=== PATIENT | female | born 1975 | race Caucasian/White ===

== ENCOUNTER → 2025-01-27 | Outpatient (CLI) | payer OTHER, SELFPAY ==
--- OUTSIDE RECORDS SUMMARY | 2025-01-27 07:55 | XMS RPT_ITS | CCD ---
Author Organization [facility] CliniSyms Care Team Providers Care Laundry Bag Punch Operator Name Role Phone Ap Smalls Unavailable Antonio Iraheta Unavailable Unavailable Reggie Ayala Unavailable Furness, Ap T Unavailable [phone] Unavailable Unavailable Saniya Choi Unavailable Unavailable Furness, Dr. Ap Stephens Primary Care Un available Steph, Ms. Saniya Paulino Attending Unavailable Serina, Dr. Ap Stephens Primary Care Un available Lisle, Dr. Reggie Quach Attending Unavailabl e Bashir, Dr. Reggie Quach Referring Unavailabl e FURNESS, AP T Primary Care Unavailable YENI REINOSO Attending Unavailable SERINA, AP T Primary Care Unavailable YENI REINOSO Referring Unavailable NO, PHYSICIAN Primary Care Unavailable YENI TEJADA Attending Unavailable Ap Smalls MD Primary Care Provider [phone] Ap Smalls MD Primary Care Provider Ap Smalls MD Primary Care Provider [phone] ALIYAH MCCARTNEY Referring Unavailable FURNESS, AP T Primary Care Unavailable ODIN FATIMA Attending Unavailable ALIYAH MCCARTNEY Referring Unavailable FURNESS, AP T Primary Care Unavailable ALIYAH MCCARTNEY Referring Unavailable FURNESS, AP T Primary Care Unavailable ALTAGRACIA LEON Attending Unavailable ALIYAH MCCARTNEY Referring Unavailable FURNESS, AP T Primary Care Unavailable ALTAGRACIA LEON Attending Unavailable ALIYAH MCCARTNEY Referring Unavailable FURNESS, AP T Primary Care Unavailable ODIN FATIMA Attending Unavailable ALIYAH MCCARTNEY Referring Unavailable FURNESS, AP T Primary Care Unavailable ALIYAH MCCARTNEY Referring Unavailable FURNESS, AP T Primary Care Unavailable Ap Smalls MD Primary Care Provider ALIYAH MCCARTNEY Attending Unavailable AP SMALLS Primary Care Unavailable ALIYAH MCCARTNEY Attending Unavailable AP SMALLS Primary Care Unavailable ALIYAH MCCARTNEY Attending Unavailable AP SMALLS Primary Care Unavailable ALIYAH MCCARTNEY Attending Unavailable AP SMALLS Primary Care Unavailable RADHA RAMOS Attending Unavailable AP SMALLS Primary Care Unavailable Bib FLOOR COVERING INSTALLERRoxanaCAliyah Attending Provider [phone] Bib FLOOR COVERING INSTALLERRoxanaCAliyah Attending Provider Aliyah Mccartney Attending Unavailable Aliyah Mccartney Attending Unavailable Aliyah Mccartney Attending Unavailable Allergies Allergy Classification Reported Allergen(s) Allergy Type Date of Onset Reaction(s) Facility (17 sources) Amoxicillin; Translations: [amoxicillin] Drug Allergy 01-30-20 05 Hives, Itching, Rash [facility] (6 sources) Cephalexin; Translations: [cephalexin] Drug Allergy 02-08-20 15 Hives/Urticari a, Hives [facility] (5 sources) Penicillin; Translations: [Penicillins] Drug Allergy Swelling/Edema , Hives, Swelling [facility] (13 sources) Penicillins; Translations: [PENICILLINS] Propensity to adverse reactions to drug (disorder) 01-30-20 05 Hives, Rash, Swelling [facility] (12 sources) Cephalosporins (Antibiotic); Translations: [CEPHALOSPORINS] Propensity to adverse reactions to drug (disorder) 12-10-19 15 Hives [facility] (1 source) Amoxicillin Drug Allergy 10-24-19 25 [facility] Medications Current Medications Medication Drug Class(es) Dates Sig (Normalized) Sig (Original) acetaminophen 325 mg oral tablet (2 sources) Start: 04-20-2024 take 1 tablet by mouth once as needed Acetaminophen (Tylenol) 325 mg tablet Active 325 mg PO ONCE as needed April 20, 2024 12:00am azithromycin 250 mg oral tablet (2 sources) Macrolide Antimicrobial Start: 10-22-2020 take 2 tablets by mouth once, then take 1 tablet by mouth once daily azithromycin 250 mg oral tablet ; Take 2 tabs (500mg) x 1 days, then 1 tab (250mg) once daily x 4 days Quantity: 6 Refills: 0 Ordered: 22-Oct-2020 Antonio Iraheta Start: 22-Oct-2020 Status: Other Generic Substitution Allowed Comments: Do not take dairy products, antacids, or iron preparations within one hour of this medication.Finish all this medication unless otherwise directed by prescriber. Comment on above: Do not take dairy pr oducts, antacids, or iron preparations within one hour of this medication.Finish all this medication unless otherwise directed by prescriber. doxycycline hyclate 100 mg oral tablet (3 sources) Tetracycline-class Drug Start: 04-15-2021 End: 04-21-2021 take 1 tablet by mouth twice daily doxycycline hyclate 100 mg oral tablet ; 1 tab(s) orally 2 times a day Quantity: 14 Refills: 0 Ordered: 15-Apr-2021 Antonio Iraheta Start: 15-Apr-2021 End: 21-Apr-2021 Generic Substitution Allowed Comments: Avoid prolonged or excessive exposure to direct and/or artificial sunlight while taking this medication.Do not take this drug if you are .Finish all this medication unless otherwise directed by prescriber.Medicat ion should be taken with plenty of water. Start: 04-15-2021 Doxycycline Hy clate 100 MG Oral Tablet Quantity: 14 Refills: 0 Ordered: 15-Apr-2021 DO Start : 15-Apr-2021 Active Comment on above: Avoid prolonged or e xcessive exposure to direct and/or artificial sunlight while taking this medication.Do not take this drug if you are .Finish all this medication unless otherwise directed by prescriber.Medication should be taken with plenty of water. fluconazole 150 mg oral tablet (1 source) Azole Antifungal Start: 2024 End: 2024 take 1 tablet by mouth once fluconazole (Diflucan) 150 mg tablet Indications: Vaginal yeast infection Take 1 tablet (150 mg) by mouth 1 time for 1 dose. 1 tablet 05/31/2024 05/31/2024 Active hydrOXYzine hydrochloride 25 mg oral tablet (4 sources) Antihistamine Start: 2020 take 1 tablet by mouth three times daily hydrOXYzine hydrochloride 25 mg oral tablet ; 1 tab(s) orally 3 times a day as needed for itching Quantity: 20 Refills: 0 Ordered: 04-Jun-2020 Antonio Iraheta Start: 04-Jun-2020 Status: Other Generic Substitution Allowed Comments: May cause drowsiness. Alcohol may intensify this effect. Use care when operating dangerous machinery.Obtain medical advice before taking any non-prescription drugs as some may affect the action of this medication. Start: 03-15-2020 take 1 tablet by josee th four times daily hydrOXYzine hydrochloride 25 mg oral tablet ; 1 tab(s) orally 4 times a day, As Needed for itching Quantity: 30 Refills: 0 Ordered: 15-Mar-2020 Petre Abraham Start: 15-Mar-2020 Status: Other Generic Substitution Allowed Comments: May cause drowsiness. Alcohol may intensify this effect. Use care when operating dangerous machinery.Obtain medical advice before taking any non-prescription drugs as some may affect the action of this medication. Comment on above: May cause drowsiness . Alcohol may intensify this effect. Use care when operating dangerous machinery.Obtain medical advice before taking any non-prescription drugs as some may affect the action of this medication. levocetirizine dihydrochloride 5 mg oral tablet (6 sources) Histamine-1 Receptor Antagonist take 1 tablet by mouth once daily in the evening levocetirizine (Xyzal) 5 mg tablet Take 1 tablet (5 mg) by mouth once daily in the evening. Active levonorgestrel 0.273281 mg/hr intrauterine system (9 sources) Progestin, Progestin-containing Intrauterine Device Start: 025 Levonorgestrel (Mirena) 21 mcg/24hr (up to 8 yrs) 52 mg intrauterine device Active 1 NMA INTRA-UTER ONCE April 20, 2024 12:00am as a single dose levonorgestrel ( Mirena) 20 mcg/24hr IUD 52 mg by intrauterine route. Active Mirena (52 MG) I UD Quantity: 0 Refills: 0 Ordered: 12-Apr-2020 DO Active Mirena 52 mg int rauterine device ; 1 each intrauterine once Quantity: 0 Refills: 0 Ordered: 04-Jun-2020 Bowling, Melanic Generic Substitution Allowed Magnesium (2 sources) Start: 04-20-2024 Magnesium 200 mg tablet Active 420 mg PO daily April 20, 2024 12:00am nitrofurantoin, macrocrystals 25 mg / nitrofurantoin, monohydrate 75 mg oral capsule (3 sources) Nitrofuran Antibacterial Start: 03-25-2023 take 1 capsule by mouth twice daily at mealtime nitrofurantoin, macrocrystal-mono hydrate, (Macrobid) 100 mg capsule TAKE 1 CAPSULE BY MOUTH TWICE DAILY WITH A MEAL FOR 5 DAYS 03/25/2023 Active ofloxacin 3 mg/ml otic solution (1 source) Quinolone Antimicrobial Start: 04-14-2022 End: 04-20-2022 ofloxacin 0.3% otic solution ; 5 drop(s) in each affected ear 2 times a day Quantity: 1 Refills: 0 Ordered: 14-Apr-2022 Saniya Choi Start: 14-Apr-2022 End: 20-Apr-2022 Generic Substitution Allowed Comments: For the ear. Comment on above: For the ear. predniSONE 20 mg oral tablet (11 sources) Start: 04-15-2021 End: 04-19-2021 take 1 tablet by mouth once daily at mealtime predniSONE 20 mg oral tablet ; 1 tab(s) orally once a day Quantity: 5 Refills: 0 Ordered: 15-Apr-2021 Antonio Iraheta Start: 15-Apr-2021 End: 19-Apr-2021 Generic Substitution Allowed Comments: It is very important that you take or use this exactly as directed. Do not skip doses or discontinue unless directed by your doctor.Obtain medical advice before taking any non-prescription drugs as some may affect the action of this medication.Take with food or milk. Start: 10-22-2020 End: 10-27-2020 take 6 tablets by mouth once daily at mealtime, then take 1 tablet by mouth once daily, then take 1 tablet by mouth once daily, then take 1 tablet by mouth once daily, then take 1 tablet by mouth once daily, then take 1 tablet by mouth once daily predniSONE 10 mg oral tablet ; 6 tab(s) orally once a day x 1 days5 tab(s) orally once a day x 1 days4 tab(s) orally once a day x 1 days3 tab(s) orally once a day x 1 days2 tab(s) orally once a day x 1 days1 tab(s) orally once a day x 1 days Quantity: 21 Refills: 0 Ordered: 22-Oct-2020 Antonio Iraheta Start: 22-Oct-2020 End: 27-Oct-2020 Status: Other Generic Substitution Allowed Comments: It is very important that you take or use this exactly as directed. Do not skip doses or discontinue unless directed by your doctor.Obtain medical advice before taking any non-prescription drugs as some may affect the action of this medication.Take with food or milk. Start: 10-22-2020 predniSONE 10 MG Oral Tablet Quantity: 21 Refills: 0 Ordered: 22-Oct-2020 DO Start : 22-Oct-2020 Active Start: 06-04-2020 End: 06-15-2020 take 6 tablets by mouth once daily at mealtime, then take 1 tablet by mouth once daily, then take 1 tablet by mouth once daily, then take 1 tablet by mouth once daily, then take 1 tablet by mouth once daily, then take 1 tablet by mouth once daily predniSONE 10 mg oral tablet ; 6 tab(s) orally once a day x 2 days5 tab(s) orally once a day x 2 days4 tab(s) orally once a day x 2 days3 tab(s) orally once a day x 2 days2 tab(s) orally once a day x 2 days1 tab(s) orally once a day x 2 days Quantity: 42 Refills: 0 Ordered: 04-Jun-2020 Antonio Iraheta Start: 04-Jun-2020 End: 15-Jun-2020 Status: Other Generic Substitution Allowed Comments: It is very important that you take or use this exactly as directed. Do not skip doses or discontinue unless directed by your doctor.Obtain medical advice before taking any non-prescription drugs as some may affect the action of this medication.Take with food or milk. Start: 03-15-2020 take 4 tablets by mo uth once daily at mealtime, then take 3 tablets by mouth once daily, then take 2 tablets by mouth once daily, then take 1 tablet by mouth once daily predniSONE 10 mg oral tablet ; Take 40 mg daily for 3 days, then take 30 mg daily for 3 days, then take 20 mg daily for 3 days, then take 10 mg daily for 3 days. Quantity: 30 Refills: 0 Ordered: 15-Mar-2020 Peter Abraham Start: 15-Mar-2020 Status: Other Generic Substitution Allowed Comments: It is very important that you take or use this exactly as directed. Do not skip doses or discontinue unless directed by your doctor.Obtain medical advice before taking any non-prescription drugs as some may affect the action of this medication.Take with food or milk. Start: 03-08-2020 End: 03-14-2020 take 1 tablet by mouth twice daily at mealtime predniSONE 20 mg oral tablet ; 1 tab(s) orally 2 times a day Quantity: 14 Refills: 0 Ordered: 08-Mar-2020 Peter Abraham Start: 08-Mar-2020 End: 14-Mar-2020 Status: Other Generic Substitution Allowed Comments: It is very important that you take or use this exactly as directed. Do not skip doses or discontinue unless directed by your doctor.Obtain medical advice before taking any non-prescription drugs as some may affect the action of this medication.Take with food or milk. Comment on above: It is very important that you take or use this exactly as directed. Do not skip doses or discontinue unless directed by your doctor.Obtain medical advice before taking any non-prescription drugs as some may affect the action of this medication.Take with food or milk. SEMAGLUTIDE, WEIGHT LOSS, SUBQ (6 sources) inject 20 [IU] by subcutaneous injection every week SEMAGLUTIDE, WEIGHT LOSS, SUBQ Inject 20 Units under the skin 1 (one) time per week. Active Completed/Discontinued Medications Medication Drug Class(es) Dates Sig (Normalized) Sig (Original) [id number] 200 actuat albuterol 0.09 mg/actuat metered dose inhaler (2 sources) beta2-Adrenergic Agonist Start: 10-22-2020 take 2 puff(s) by inhalation twice daily as needed for cough albuterol 90 mcg/inh inhalation aerosol ; 2 puff(s) inhaled 2 times a day as needed for cough Quantity: 1 Refills: 0 Ordered: 22-Oct-2020 Antonio Iraheta Start: 22-Oct-2020 Status: Other Generic Substitution Allowed Comments: For inhalation only.It is very important that you take or use this exactly as directed. Do not skip doses or discontinue unless directed by your doctor.Obtain medical advice before taking any non-prescription drugs as some may affect the action of this medication.Shake well before use. Comment on above: For inhalation only. It is very important that you take or use this exactly as directed. Do not skip doses or discontinue unless directed by your doctor.Obtain medical advice before taking any non-prescription drugs as some may affect the action of this medication.Shake well before use. Cetirizine (2 sources) Histamine-1 Receptor Antagonist Zyrtec TABS Quantity: 0 Refills: 0 Ordered: 12-Apr-2020 DO Active famotidine 20 mg oral tablet (2 sources) Histamine-2 Receptor Antagonist Start: 03-08-2020 End: 03-14-2020 take 1 tablet by mouth twice daily Pepcid 20 mg oral tablet ; 1 tab(s) orally 2 times a day Quantity: 14 Refills: 0 Ordered: 08-Mar-2020 Peter Abraham Start: 08-Mar-2020 End: 14-Mar-2020 Status: Other Generic Substitution Allowed Comments: It is very important that you take or use this exactly as directed. Do not skip doses or discontinue unless directed by your doctor.Obtain medical advice before taking any non-prescription drugs as some may affect the action of this medication. Comment on above: It is very important that you take or use this exactly as directed. Do not skip doses or discontinue unless directed by your doctor.Obtain medical advice before taking any non-prescription drugs as some may affect the action of this medication. fluticasone propionate 0.05 mg/actuat metered dose nasal spray (3 sources) Corticosteroid Start: 11-24-2020 Fluticasone Propionate 50 MCG/ACT Nasal Suspension Quantity: 16 Refills: 0 Ordered: 24-Nov-2020 DO Start : 24-Nov-2020 Active Flonase 50 mcg/i nh nasal spray ; 1 spray(s) nasal once a day Quantity: 0 Refills: 0 Ordered: 15-Apr-2021 Rema Madison Generic Substitution Allowed meloxicam 15 mg oral tablet (10 sources) Nonsteroidal Anti-inflammatory Drug Start: 12-27-2023 End: 10-23-2024 take 1 tablet by mouth once daily Meloxicam 15 mg tablet Discontinued 15 mg PO daily 90 April 20, 2024 12:00am October 23, 2024 9:04am Start: 11-25-2023 take 1 tablet by josee th once daily meloxicam (Mobic) 15 mg tablet Indications: Primary osteoarthritis of both knees Take 1 tablet by mouth once daily 30 tablet 11/25/2023 Active Start: 09-24-2023 End: 11-23-2023 take 1 tablet by mouth once daily meloxicam (Mobic) 15 mg tablet Indications: Primary osteoarthritis of both knees Take 1 tablet (15 mg) by mouth once daily. 30 tablet 1 09/24/2023 11/23/2023 Active 1 ml triamcinolone acetonide 40 mg/ml injection (8 sources) Corticosteroid Start: 12-09-2023 End: 12-09-2023 triamcinolone acetonide (Kenalog-40) injection 40 mg Start: 12-09-2023 End: 12-09-2023 40 mg, intra-articular, Once PRN Procedure, Starting on Wed12/09/23 at 1602, For 1 dose Start: 09-24-2023 End: 09-24-2023 triamcinolone acetonide (Casey alog-40) injection 40 mg Start: 09-24-2023 End: 09-24-2023 40 mg, intra-articular, Once PRN Procedure, Starting on Wed09/24/23 at 1550, For 1 dose Problems Active Problems Problem Classification Problem Date Documented Date Episodic/Chronic Fracture of lower limb (2 sources) Displaced fracture of proximal phalanx of left lesser toe(s), initial encounter for closed fracture; Translations: [Displaced fracture of proximal phalanx of left lesser toe(s), initial encounter for closed fracture] Onset: 02-02-2023 Episodic Immunizations and screening for infectious disease (7 sources) Patient encounter status; Translations: [Screening examination for venereal disease] 05-31-2024 Episodic Mycoses (1 source) Candidiasis of vagina; Translations: [Vaginal yeast infection] 05-31-2024 Episodic Osteoarthritis (20 sources) Primary gonarthrosis, bilateral; Translations: [Bilateral primary osteoarthritis of knee] Onset: 09-24-2023 12-10-2023 Chronic Other ear and sense organ disorders (2 sources) Otitis externa; Translations: [Infective otitis externa, unspecified] 04-14-2022 Chronic Other ear and sense organ disorders (1 source) Unspecified otitis externa, left ear; Translations: [Unspecified otitis externa, left ear] Onset: 04-14-2022 Chronic Other ear and sense organ disorders (1 source) Otalgia, left ear; Translations: [Otalgia, left ear] Onset: 04-14-2022 Episodic Other infections; including parasitic (2 sources) History of sexually transmitted disease; Translations: [Personal history of other infectious and parasitic diseases] Episodic Other injuries and conditions due to external causes (2 sources) Motion sickness; Translations: [Motion sickness] Episodic Other screening for suspected conditions (not mental disorders or infectious disease) (13 sources) Urine test negative; Translations: [ examination or test, negative result] Onset: 05-16-2021 Episodic Other upper respiratory infections (2 sources) Acute sinusitis; Translations: [Acute sinusitis, unspecified] 04-15-2021 Episodic Residual codes; unclassified (2 sources) Past history of procedure; Translations: [Other specified personal history presenting hazards to health] Episodic Comment on above: 08/12/2018; 05/16/2021; 2018; Residual codes; unclassified (1 source) Pain, unspecified; Translations: [Pain] Onset: 02-03-2023 Episodic Unclassified (2 sources) Patient encounter procedure 04-12-2020 Comment on above: YEARLY Unclassified (2 sources) SINUS PAIN 04-15-2021 Comment on above: SINUS PAIN Unclassified (2 sources) EAR PAIN 04-14-2022 Comment on above: EAR PAIN Unclassified (1 source) Patient encounter status 05-31-2024 Unclassified (1 source) Acute candidiasis of vulva and vagina; Translations: [Acute candidiasis of vulva and vagina] Onset: 05-31-2024 Viral infection (2 sources) Disease caused by 2019-nCoV 10-22-2020 Comment on above: POST COVID CHECK Past or Other Problems Problem Classification Problem Date Documented Da te Episodic/Chronic Administrative/social admission (3 sources) Repeated prescription; Translations: [Encounter for issue of repeat prescription] Onset: 11-25-2023 11-25-2023 Episodic Other non-traumatic joint disorders (7 sources) Pain in right knee; Translations: [Pain in joint, lower leg] Onset: 09-24-2023 09-24-2023 Episodic Other non-traumatic joint disorders (5 sources) Pain in left knee; Translations: [Pain in left knee] Onset: 09-24-2023 Episodic Residual codes; unclassified (2 sources) Pain; Translations: [Pain] Onset: 10-28-2023 Episodic Unclassified (2 sources) Finding of menstrual bleeding; Translations: [Menstruation] Comment on above: Onset age 13 years; Unclassified (2 sources) Onset: 12-22-2023 12-22-2023 Unclassified (1 source) Acute candidiasis of vulva and vagina; Translations: [Acute candidiasis of vulva and vagina] Onset: 05-31-2024 Results Test Name Value Interpretation Reference Range Facility Orthopedic Visit Reporton Orthopedic Visit Report [facility] [address] [place] [address] [address] [place] [address] OFFICE VISIT Date of Service: 10/23/24 MR#: [id number] Acct: [id number] Name: NIKKI MONTES Rep #: [id number] : 1975 Provider: PHILIPPE solis Age/Sex: 49/F [facility] Status: Signed Intake Vital Signs 07/21/24 15:06 Height 5 ft 5 in Intake Visit Reasons: BL KNEES Chief Complaint: Bilateral knee injection Is patient in pain?: Yes (BL knee) Pain scale (1-10): 3 Allergies amoxicillin Allergy (Verified 10/23/24 09:04) rash hives Cephalosporins Allergy (Verified 10/23/24 09:04) rash hives Penicillins Allergy (Verified 10/23/24 09:04) rash hives Medications ???Medication ???Instructions ???Recorded ???Confirmed ???Type acetaminophen 325 mg tablet 325 mg PO ONCE PRN 04/20/24 History (Tylenol) levonorgestrel (Mirena) 1 device intrauterine ONCE 2 5 10/23/24 History magnesium 200 mg tablet 420 mg PO QDAY 04/20/24 10/23/24 H istory meloxicam 15 mg tablet 15 mg PO QDAY 04/20/24 10/23/24 Hi story PFSH Medical History Enlarged adenoids Obstructed fallopian tubes Gallbladder abscess Social History Smoking Status: Never smoker alcohol intake: never HPI BL KNEES Details: This documentation accurately reflects the service provided and the decisions made by me, MAO RockwellC 10/23/24 0856. Part of today???s visit was documented by Etelvina Roger RN, acting as scribe. NIKKI MONTES is a 49 year old F here today for bilateral knee steroid injections. She noticed three weeks ago that the pain in her knees returned. She states the pain is best in the morning and gets worse throughout the day. She does notice a lot of stiffness as well. She had relief with the last steroid injections and would like to proceed with them again. Agree with above, patient is getting good relief for almost 3 months with steroid injections. Patient also states she p.o. daily meloxicam seems to help, she does need a refill of this. No adverse reactions from this medication. She is aware she can take Tylenol on as needed basis which is rare. Denies any new injuries. ROS Const All systems reviewed are unremarkable except as noted in H and other (A O x 3, no apparent distress. No recent illness.) ENT Denies dizziness Card Denies chest pain, Denies dyspnea, Denies edema and Reports other (No palpitations) Resp Denies cough, Denies dyspnea and Reports other (No recent URI) GI Reports system reviewed and no additional complaints, except as documented, Denies nausea and Denies vomiting Musc Reports as per HPI, Reports arthralgias, Reports limited range of motion and Reports stiffness Neuro No dizziness Psych Reports system reviewed and no additional complaints, except as documented Kaden/Lymph Denies easy bleeding and Denies easy bruising Ortho Exam General General: Yes no acute distress and Yes well groomed Neurologic: Yes alert and Yes oriented x3 Psychologic: Yes reasonable and appropriate Right Knee KNEE: Skin is pink, warm, dry and intact, no ecchymosis + mild anterior swelling present Range of motion: 0 to 120 degrees, stiffness with flexion 100-120 Palpation: mild crepitus with range of motion testing. Patient is tender over medial greater than lateral region. Special tests: Positive Mohinder and Apley's for symptom aggravation and catching sensation; anterior drawer Negative; posterior drawer Negative; medial joint opening Negative; lateral joint opening Negative Full range of distal joints with no symptom aggravation Distal motor or sensory intact with brisk cap refill at 2 seconds Left Knee KNEE: Skin is pink, warm, dry and intact, no ecchymosis, mild lateral edema is noted. Range of motion: 0 to 110 degrees, stiffness greater than 90 Palpation: Positive crepitus with range of motion testing. Patient is tender over lateral greater than medial IT band tightness and tender with palpation to distal and proximal > medial portion Special tests: Positive Mohinder and Apley's for symptom aggravation and catching sensation; anterior drawer Negative; posterior drawer Negative; medial joint opening Negative; lateral joint opening Full range of distal joints with no symptom aggravation Distal motor or sensory intact with brisk cap refill at 2 seconds Office Procedures Ortho Injections Injections Yes Knee Right Is this a patient provided medication?: No Details: We discussed risk and benefits of injectable steroid. Obtained written and oral consent for injection. Under sterile conditions, skin was prepped with Betadine and alcohol prep, topical pain ease spray applied; injected the pa (more content not included)... Normal [facility] Orthopedic Visit Reporton Orthopedic Visit Report [facility] [address] [place] [address] OFFICE VISIT Date of Service: 07/21/24 MR#: [id number] Acct: [id number] Name: NIKKI MONTES Rep #: [id number] : 1975 Provider: PHILIPPE solis Age/Sex: 48/F Location: [facility] Status: Signed Intake Vital Signs 07/21/24 15:06 Height 5 ft 5 in Weight: 167 lb BMI 27.8 Intake Visit Reasons: BL KNEES Chief Complaint: Bilateral knee injection Accompanied by: Is patient in pain?: Yes Pain scale (1-10): 4 Allergies amoxicillin Allergy (Verified 07/21/24 15:08) rash hives Cephalosporins Allergy (Verified 07/21/24 15:08) rash hives Penicillins Allergy (Verified 07/21/24 15:08) rash hives Medications ???Medication ???Instructions ???Recorded ???Confirmed ???Type acetaminophen 325 mg tablet 325 mg PO ONCE PRN 04/20/24 History (Tylenol) levonorgestrel (Mirena) 1 device intrauterine ONCE 5 07/21/24 History magnesium 200 mg tablet 420 mg PO QDAY 04/20/24 07/21/24 H istory meloxicam 15 mg tablet 15 mg PO QDAY 04/20/24 07/21/24 Hi story meloxicam 15 mg tablet 15 mg PO QDAY #90 tabs 04/20/24 Rx Have you fallen in the past year?: No PFSH Medical History Enlarged adenoids Obstructed fallopian tubes Gallbladder abscess Social History Smoking Status: Never smoker alcohol intake: never HPI BL KNEES Details: This documentation accurately reflects the service provided and the decisions made by me, Aliyah Mccartney, FLOOR COVERING INSTALLER-C 07/21/24 6192. Part of today???s visit was documented by Annabelle Hancock MA, acting as scribe. NIKKI OMNTES is a 48 year old F here today for bilateral knee injections. Patient states that she would like to get the Cortisone injection today. She states that they worked very well for her. Patient states that the injections lasted for 3 months. She hasn't done any physical therapy since January 2024. Agree with above. Patient states she got good relief with cortisone injections to bilateral knees 3 months ago until the last week the effect is wearing off. Patient reports increased activity over the last couple of weeks with increased achiness and stiffness. Patient would like to pursue repeat cortisone injections today. Patient continues to be active and is performing home exercises on a as tolerated basis. P.o. meloxicam well-tolerated. Denies any injury since last visit here. Accompanied by spouse for today's visit. ROS Const All systems reviewed are unremarkable except as noted in H and other (A O x 3, no apparent distress. No recent illness.) ENT Denies dizziness Card Denies chest pain, Denies dyspnea, Denies edema and Reports other (No palpitations) Resp Denies cough, Denies dyspnea and Reports other (No recent URI) GI Reports system reviewed and no additional complaints, except as documented, Denies nausea and Denies vomiting Musc Reports as per HPI, Reports arthralgias, Reports joint swelling and Reports stiffness Neuro No dizziness Psych Reports system reviewed and no additional complaints, except as documented Kaden/Lymph Denies easy bleeding and Denies easy bruising Ortho Exam General General: Yes no acute distress and Yes well groomed Neurologic: Yes alert and Yes oriented x3 Psychologic: Yes reasonable and appropriate Right Knee KNEE: Skin is pink, warm, dry and intact, no ecchymosis + mild anterior swelling present Range of motion: 0 to 120 degrees, stiffness with flexion 110-120 Palpation: + crepitus with range of motion testing. Patient is tender over medial greater than lateral region. Special tests: Positive Mohinder and Apley's for symptom aggravation and catching sensation; anterior drawer [Negative]; posterior drawer [Negative]; medial joint opening [Negative]; lateral joint opening [Negative] able to bear full weight on leg, difficulty with partial squat due to symptom aggravation. Full range of distal joints with no symptom aggravation Distal motor or sensory intact with brisk cap refill at 2 seconds Left Knee KNEE: Skin is pink, warm, dry and intact, no ecchymosis, mild lateral edema is noted. Range of motion: 0 to 120 degrees, stiffness greater than 90 Palpation: Positive crepitus with range of motion testing. Patient is tender over lateral greater than medial Special tests: Positive Mohinder and Apley's for symptom aggravation and catching sensation; anterior drawer [Negative]; posterior drawer [Negative]; medial joint opening [Negative]; lateral joint opening [Negative] able to bear full weight on leg with increase of symptoms, difficulty with minimal squat due to symptom aggravation. Positive (more content not included)... Normal [facility] Cervicalon 05-31-2024 Cytology Cervical or vaginal smear or scraping study Pathology report.total SEE COMMENT Gynecologic Cytology Case: [id number] Authorizing Provider: Radha Ramos MD Collected: 05/31/20241556 Ordering Location: [facility] Received: 05/31/20241556 First Screen: LEXUS Navarro Pathologist: Rosaline Sánchez MD Specimen: ThinPrep Liquid-Based Pap-Imaging System Screen, CERVIX, SCREENING Cytology study comment SEE COMMENT Squamous and/or Glandular Abnormality A. THINPREP PAP CERVIX, SCREENING - Specimen Adequacy Satisfactory for evaluation; endocervical/transformation zone component is present General Categorization Epithelial cell abnormality- squamous cell, see interpretation. Descriptive Interpretation Atypical squamous cells of undetermined significance (ASC-US) - Cervix Fungal organisms morphologically consistent with Emily spp. at 1025 EDT Laboratory comment SEE COMMENT Slide(s) initially screened by LEXUS Navarro at [facility] [address] [facility] [address] By the signature on this report, the individual or group listed as making the Final Interpretation/Diagnosis certifies that they have reviewed this case. This specimen has been analyzed by the tuulPrep Imaging System ([employer] an automated imaging and review system, which assists the laboratory in evaluating cells on ThinPrep Pap tests. Following automated imaging, selected kapadia from every slide were reviewed by a organizational development consultant and/or pathologist. Cervical cytology is a screening procedure primarily for squamous cancers and precursors and has associated false-negative and false-positives results as evidenced by published data. Your patient's test should be interpreted in this context, together with the patient's history and clinical findings. Regular sampling and follow-up of unexplained clinical signs and symptoms are recommended to minimize false negative results. LAB AP HPV HR Always (all interpretations) LAB AP HPV GENOTYPE QUESTION Yes Normal [facility] Ambulatory HPV 16 and 18 and 31+33+35+3 9+45+51+52+56+58+59+66+68 DNA Pnl (Cvx)on 05-31-2024 HPV 16 DNA LUTHER+probe Ql (Unsp spec) Negative Normal Negative [facility] Comment on above: Order Comment: Testi ng for high-risk (HR) types of human papilloma virus (HPV) is performed by the [employer] lidia HPV Test. The lidia HPV Test is a qualitative polymerase chain reaction that amplifies DNA of HPV16, HPV18, and 12 other high-risk HPV types (31, 33, 35, 39, 45, 51, 52, 56, 58, 59, 66, and 68) associated with cervical cancer and its precursor lesions. A positive result indicates the presence of HPV DNA due to one or more of the 14 genotypes: 16, 18, 31, 33, 35, 39, 45, 51, 52, 56, 58, 59, 66, and 68. Negative results indicates HPV DNA concentrations are undectectable or below the pre-set threshold for detection. False negative results may be associated with unoptimized sampling. A negative HR HPV result does not exclude the possibility of future cytologic HSIL or underlying CIN2-3 or cancer. This test is approved by the US Food and Drug Administration. Results of this test should be interpreted in conjunction with the patient Pap test results. Please refer to [facility] current quidelines for the use of HPV DNA testing, result interpretation, and patient management. The performance of this test was verified by the Molecular Diagnostic Laboratory at [facility]. The lab is certified under the Clinical Laboratory Amendments of 1988 (CLIA 88) as qualified to perform high complexity clinical laboratory testing. PERFORMING LAB LOCATIONS [facility]: [address] [place] [address] Performed By: #### 7 1432-9 #### SANDIE Ellison ([id number]) [facility] ([facility]) [address] [place] [address] HPV 18 DNA LUTHER+probe Ql (Unsp spec) Negative Normal Negative [facility] Comment on above: Order Comment: Testi ng for high-risk (HR) types of human papilloma virus (HPV) is performed by the [employer] lidia HPV Test. The lidia HPV Test is a qualitative polymerase chain reaction that amplifies DNA of HPV16, HPV18, and 12 other high-risk HPV types (31, 33, 35, 39, 45, 51, 52, 56, 58, 59, 66, and 68) associated with cervical cancer and its precursor lesions. A positive result indicates the presence of HPV DNA due to one or more of the 14 genotypes: 16, 18, 31, 33, 35, 39, 45, 51, 52, 56, 58, 59, 66, and 68. Negative results indicates HPV DNA concentrations are undectectable or below the pre-set threshold for detection. False negative results may be associated with unoptimized sampling. A negative HR HPV result does not exclude the possibility of future cytologic HSIL or underlying CIN2-3 or cancer. This test is approved by the US Food and Drug Administration. Results of this test should be interpreted in conjunction with the patient Pap test results. Please refer to [facility] current quidelines for the use of HPV DNA testing, result interpretation, and patient management. The performance of this test was verified by the Molecular Diagnostic Laboratory at [facility]. The lab is certified under the Clinical Laboratory Amendments of 1988 (CLIA 88) as qualified to perform high complexity clinical laboratory testing. PERFORMING LAB LOCATIONS [facility]: [address] [place] [address] Performed By: #### 7 1432-9 #### SANDIE Ellison ([id number]) [facility] ([facility]) [address] [place] [address] HPV 31+33+35+39+45+51+ 52+56+58+59+66+68 DNA LUTHER+probe Ql (Genital specimen) Negative Normal Negative [facility] Comment on above: Order Comment: Testi ng for high-risk (HR) types of human papilloma virus (HPV) is performed by the [employer] lidia HPV Test. The lidia HPV Test is a qualitative polymerase chain reaction that amplifies DNA of HPV16, HPV18, and 12 other high-risk HPV types (31, 33, 35, 39, 45, 51, 52, 56, 58, 59, 66, and 68) associated with cervical cancer and its precursor lesions. A positive result indicates the presence of HPV DNA due to one or more of the 14 genotypes: 16, 18, 31, 33, 35, 39, 45, 51, 52, 56, 58, 59, 66, and 68. Negative results indicates HPV DNA concentrations are undectectable or below the pre-set threshold for detection. False negative results may be associated with unoptimized sampling. A negative HR HPV result does not exclude the possibility of future cytologic HSIL or underlying CIN2-3 or cancer. This test is approved by the US Food and Drug Administration. Results of this test should be interpreted in conjunction with the patient Pap test results. Please refer to [facility] current quidelines for the use of HPV DNA testing, result interpretation, and patient management. The performance of this test was verified by the Molecular Diagnostic Laboratory at [facility]. The lab is certified under the Clinical Laboratory Amendments of 1988 (CLIA 88) as qualified to perform high complexity clinical laboratory testing. PERFORMING LAB LOCATIONS [facility]: [address] [place], [place] [address] [address] Performed By: #### 7 1432-9 #### SANDIE Ellison ([id number]) [facility] ([facility]) [address] [place], [place] [id number] Human papilloma virus high-risk genotypes panel Negative Normal Negative [facility] Comment on above: Order Comment: Testi ng for high-risk (HR) types of human papilloma virus (HPV) is performed by the [employer] lidia HPV Test. The lidia HPV Test is a qualitative polymerase chain reaction that amplifies DNA of HPV16, HPV18, and 12 other high-risk HPV types (31, 33, 35, 39, 45, 51, 52, 56, 58, 59, 66, and 68) associated with cervical cancer and its precursor lesions. A positive result indicates the presence of HPV DNA due to one or more of the 14 genotypes: 16, 18, 31, 33, 35, 39, 45, 51, 52, 56, 58, 59, 66, and 68. Negative results indicates HPV DNA concentrations are undectectable or below the pre-set threshold for detection. False negative results may be associated with unoptimized sampling. A negative HR HPV result does not exclude the possibility of future cytologic HSIL or underlying CIN2-3 or cancer. This test is approved by the US Food and Drug Administration. Results of this test should be interpreted in conjunction with the patient Pap test results. Please refer to [facility] current quidelines for the use of HPV DNA testing, result interpretation, and patient management. The performance of this test was verified by the Molecular Diagnostic Laboratory at [facility]. The lab is certified under the Clinical Laboratory Amendments of 1988 (CLIA 88) as qualified to perform high complexity clinical laboratory testing. PERFORMING LAB LOCATIONS [facility]: [address] [place], [place] [id number] Performed By: #### 7 1432-9 #### SANDIE Ellison ([id number]) [facility] ([facility]) [address] [place], [place] [id number] Orthopedic Visit Reporton Orthopedic Visit Report [facility] [address] [place] [address] OFFICE VISIT Date of Service: 04/20/24 MR#: [id number] Acct: [id number] Name: NIKKI MONTES Rep #: [id number] : 1975 Provider: PHILIPPE solis Age/Sex: 48/F Location: [facility] Status: Signed with Addenda ADDENDUM by PHILIPPE Mccartney on 05/03/24 at 1112 Office Injections/Aspirations Procedure Detail Ortho Injection Site: Yes Ortho: Intrarticular (bilat knees - addended 05/03/24-sn) Assessment and Plan Assessment and Plan Orders: Orders Ortho Injections 04/20/24 M25.561 - Pain in right knee, M25.562 - Pain in left knee Medications: New meloxicam 15 mg PO QDAY 90 tabs 1RF 05/03/24 1112 Date Aliyah Mccartney cc: * Signed Intake Vital Signs 04/20/24 15:23 Weight: 179 lb 4 oz Intake Visit Reasons: BILATERAL KNEES Allergies amoxicillin Allergy (Verified 04/20/24 15:26) rash hives Cephalosporins Allergy (Verified 04/20/24 15:26) rash hives Penicillins Allergy (Verified 04/20/24 15:26) rash hives Medications ???Medication ???Instructions ???Recorded ???Confirmed ???Type acetaminophen 325 mg tablet 325 mg PO ONCE PRN 04/20/24 History (Tylenol) levonorgestrel (Mirena) 1 device intrauterine ONCE 5 04/20/24 History magnesium 200 mg tablet 420 mg PO QDAY 04/20/24 04/20/24 H istory meloxicam 15 mg tablet 15 mg PO QDAY 04/20/24 04/20/24 Hi story meloxicam 15 mg tablet 15 mg PO QDAY #90 tabs 04/20/24 Rx HPI BILATERAL KNEES Details: This documentation accurately reflects the service provided and the decisions made by me, PHILIPPE Rockwell 04/20/24 1521. Part of today???s visit was documented by Cookie GARDUNO, acting as scribe. NIKKI MONTES is a 48 year old F NEW patient here today for bilateral knee pain the left is worse. She states that she has had pain for many years that has gotten worse over time. She was a previous patient at in [facility]. She last had steroid injection in November and had a f/u in January where she was doing PT and wasn't having pain. She was supposed to get repeat steroid injections in her knees in February but never got them done. Patient would like to get the injections today. Agree with above. Nikki is a pleasant 48-year-old female presenting for follow-up visit of bilateral knee pain. Patient was known to me at the previous practice. Patient states she did complete therapy towards the end of last year and had no pain at her follow-up in January 2024. Symptoms have been progressively worsening over time. At this point, patient states left knee is worse than the right with locking and catching episodes. Patient has to stand for period of time before she is able to ambulate comfortably. Mild increase in mechanical symptoms. Patient has not been able to do her home exercises as previously instructed by PT due to increase of pain. Patient has been taking meloxicam since last evaluation with good relief, she is about to run out and requesting refill. ROS Const All systems reviewed are unremarkable except as noted in H and other (A O x 3, no apparent distress. No recent illness.) ENT Denies dizziness Card Denies chest pain, Denies dyspnea, Denies edema and Reports other (No palpitations) Resp Denies cough, Denies dyspnea and Reports other (No recent URI) GI Reports system reviewed and no additional complaints, except as documented, Denies nausea and Denies vomiting Musc Reports as per HPI, Reports arthralgias, Reports joint swelling and Reports stiffness Neuro No dizziness and Yes other (Paresthesias as noted in HPI) Psych Reports system reviewed and no additional complaints, except as documented Kaden/Lymph Denies easy bleeding and Denies easy bruising Ortho Exam Right Knee KNEE: Skin is pink, warm, dry and intact, no ecchymosis or swelling present Range of motion: 0 to 110 degrees, stiffness with flexion 110-120 Palpation: Minimal crepitus with range of motion testing. Patient is tender over medial greater than lateral region. Special tests: Positive Mohinder and Apley's for symptom aggravation and catching sensation; anterior drawer [Negative]; posterior drawer [Negative]; medial joint opening [Negative]; lateral joint opening [Negative] able to bear full weight on leg, difficulty with partial squat due to symptom aggravation. Full range of distal joints with no symptom aggravation Distal motor or sensory intact with brisk cap refill at 2 seconds Left Knee KNEE: Skin is pink, warm, dry and intact, no ecchymosis, mild lateral edema is noted. Range of motion: 0 to 90 degrees, stiffness and locking sensation greater than 90 Palpation: Positive crepitus with (more content not included)... Normal [facility] L Inj/Asp: bilateral kneeon 12-09-2023 ARSALAN Aguilera RN-CRM CONSULTANT 12/10/2023 1:07 PM L Inj/Asp: bilateral knee on 12/09/2023 4:02 PM Indications: pain and joint swelling Details: 22 G needle, superolateral approach Medications (Right): 40 mg triamcinolone acetonide 40 mg/mL Medications (Left): 40 mg triamcinolone acetonide 40 mg/mL Outcome: tolerated well, no immediate complications We discussed risk and benefits of cortisone injection, patient wishes to proceed via verbal consent. Skin was prepped with Betadine, vapo coolant spray and alcohol. Administered injection of 40 mg Kenalog, 3 cc 2% lidocaine and 3 cc of 0.25% bupivacaine. Patient tolerated injection well with lidocaine suppression. No active bleeding, bandage applied to site. Procedure, treatment alternatives, risks and benefits explained, specific risks discussed. Consent was given by the patient. Immediately prior to procedure a time out was called to verify the correct patient, procedure, equipment, senior administrative support and site/side marked as required. Patient was prepped and draped in the usual sterile fashion. [facility] Work Phone: [facility] Work Phone: L Inj/Asp: bilateral kneeon 09-24-2023 ARSALAN Aguilera RN-CRM CONSULTANT 09/25/2023 1:33 PM L Inj/Asp: bilateral knee on 09/24/2023 3:50 PM Indications: pain and joint swelling Details: 22 G needle, superolateral approach Medications (Right): 40 mg triamcinolone acetonide 40 mg/mL Medications (Left): 40 mg triamcinolone acetonide 40 mg/mL Outcome: tolerated well, no immediate complications We discussed risk and benefits of cortisone injection, patient wishes to proceed via verbal consent. Skin was prepped with Betadine, vapo coolant spray and alcohol. Administered injection of 40 mg Kenalog, 3 cc 2% lidocaine and 3 cc of 0.25% bupivacaine. Patient tolerated injection well with lidocaine suppression. No active bleeding, bandage applied to site. Procedure, treatment alternatives, risks and benefits explained, specific risks discussed. Consent was given by the patient. Immediately prior to procedure a time out was called to verify the correct patient, procedure, equipment, senior administrative support and site/side marked as required. Patient was prepped and draped in the usual sterile fashion. [facility] Work Phone: [facility] Work Phone: XR KNEE 4+ VIEWS BILATERALon 09-24-2023 XR KNEE 4+ VIEWS BILATERAL Interpreted By: Amish Sheets, STUDY: XR KNEE 4+ VIEWS BILATERAL; 09/24/2023 2:47 pm INDICATION: Signs/Symptoms:PAIN COMPARISON: None. ACCESSION NUMBER(S): [id number] ORDERING CLINICIAN: ALIYAH MCCARTNEY TECHNIQUE: Number of films: 8 view radiographs of the knees bilaterally. FINDINGS: No fractures or destructive lesions are identified. There is mild narrowing involving the medial compartment of the right knee joint; the joint spaces are otherwise preserved. The alignment is anatomic. The soft tissues are unremarkable. There is no significant effusion in the suprapatellar bursa. IMPRESSION: Minimal degenerative changes involving the medial compartment of the right knee joint; otherwise unremarkable exam. Signed by: Amish Sheets 09/29/2023 2:41 PM Dictation workstation: [id number] [facility] CNOVon 02-03-2023 CNOV Office Visit (ORFTMN ) NIKKI MONTES ([id number]) 1975 F Date Time Provider Department 02/03/23 10:30 AM YENI REINOSO During your visit today, we recorded the following information about you: Weight Height 104.3 kg 1.651 m Yeni Reinoso MD 02/03/2023 11:52 AM Signed February 03, 2023 HPI: Nikki Montes is a 47 yo female with left 5th toe fx Pain Descriptors: Duration: acute Severity: moderate Quality: ache Location: foot, ankle Context: worse with activity and dependent position Modifying Factors: improved with rest and elevation Supporting Subjective Information Below: Estimated body mass index is 38.27 kg/m? as calculated from the following: Height as of this encounter: 165.1 cm (5' 5). Weight as of this encounter: 104.3 kg (230 lb). Past Medical History PAST MEDICAL HISTORY Diagnosis Date Congenital musculoskeletal deformity of spine Genital herpes, unspecified Insertion of IUD November 30, 2007, 10/31/2012 Mirena Surgical History: PAST SURGICAL HISTORY Procedure Laterality Date ADENOIDECTOMY PRIMARY Adenoidectomy IUD INSERTION ([facility])_*FL November 30, 2007, 10/31/2012 Mirena LAPS SURG CHOLECYSTECTOMY W/CHOLANGIOGRAPHY 09/30/06 MYRINGOTOMY ASPIRAND/EUSTACHIAN TUBE NFLTJ ANES Myringotomy/tubes Family History: FAMILY HISTORY Problem Relation Age of Onset Hypertension Father Lipids Father Colon Cancer Maternal Grandmother Thyroid Paternal Grandmother Cancer Paternal Grandfather BRAIN TUMOR Cancer Other ggm- Leukemia Cancer Other BRAIN TUMOR/PGUNCLE Heart Paternal Uncle [place] Seizures Maternal Aunt Medications: Current Outpatient Medications Medication Sig levonorgestrel (MIRENA) 20 mcg/24 hour (5 years) IUD 1 Each by INTRAUTERINE route continuous. acetaminophen (TYLENOL 8 HOUR ORAL) Take by mouth. (Patient not taking: Reported on 02/03/2023) fluticasone (FLONASE) 50 mcg/actuation nasal spray Use 2 Sprays in each nostril once daily. Rinse mouth after use. (Patient not taking: Reported on 02/03/2023) valACYclovir (VALTREX) 1 gram tab Take 1 tablet by mouth once daily. (Patient not taking: Reported on 02/03/2023) omeprazole (PRILOSEC) 20 mg capsule Take 1 capsule by mouth daily before breakfast. 1/2 hr before meal. (Patient not taking: Reported on 02/03/2023) predniSONE (DELTASONE) 20 mg tablet Take 1 tablet by mouth once daily. (Patient not taking: Reported on 02/03/2023) No current facility-administered medications for this visit. Allergies: Penicillins, Cephalexin, and Amoxicillin Review Of Systems GENERAL:Negative for malaise, significant weight loss and fever HEENT:Negative for frequent or significant headaches, significant changes in vision or vision problems, significant ear problems or hearing loss, nasal discharge or nose bleeds and sore throat, difficulty swallowing, mouth lesions NECK:Negative for lumps, goiter, pain and significant neck swelling RESPIRATORY: Negative for cough, wheezing and shortness of breath CARDIOVASCULAR: Negative for chest pain, leg swelling and palpitations GASTROINTESTINAL: Negative for abdominal discomfort, blood in stools or black stools and change in bowel habits GENITOURINARY: Negative for dysuria, frequency and incontinence MUSCULOSKELETAL: Negative for joint pain or swelling, back pain, and muscle pain. NEUROLOGIC:Negative for focal numbness or weakness, headaches and dizziness. SKIN:Negative for lesions, rash, and itching. PSYCHIATRIC: Negative for sleep disturbance, mood disorder and recent psychosocial stressors. HEMATOLOGIC/LYMPHATIC/IMMUNO LOGIC:Negative for prolonged bleeding, bruising easily, and swollen nodes. ENDOCRINE: Negative for cold or heat intolerance, polyuria, polydipsia and goiter. Physical Exam: Basic physical examination reveals the patient to be in no acute distress. The patient is alert and oriented x 3 Mood and affect are appropriate. Head is atraumatic, normocephalic. Neck ROM grossly intact. Mucous membranes are moist. Eyes, ears, and nose are normal in appearance. Hearing is grossly intact. Breathing is unlabored with grossly normal chest motion. Limited Upper Extremity Exam: Shoulders with grossly intact ROM and strength, no obvious deformity. Elbows with grossly intact ROM and strength, no obvious deformity. Hand and wrist with grossly intact ROM and strength, no obvious deformity. Focused orthopaedic examination reveals the following: Skin intact without lesions. No deformity Mild swelling Imaging: XR with very subtle nondisplaced P1 fx 5th toe Assessment and Plan: Left 5th toe fx Will tx nonop with postop shoe Return to clinic: prn X-Ray's at next visit: Yes PCP: Ap Smalls MD [id number] [place] [address] FELLOW / RESIDENT: No fellow or resident assisted in this office visit. Yeni Stacy (more content not included)... Normal [facility] XR ANKLE 3V AP/LAT/OBL LTon 02-03-2023 XR ANKLE 3V AP/LAT/OBL LT * * *Final Report* * * DATE OF EXAM: Feb 03 2023 10:58AM AOX [id number] - XR ANKLE 3V AP/LAT/OBL LT / PROCEDURE REASON: Pain * * * * Physician Interpretation * * * * EXAMINATION / TECHNIQUE: XR FOOT 3V AP/LAT/OBL LT, XR ANKLE 3V AP/LAT/OBL LT PATIENT/TECHNOLOGIST PROVIDED HISTORY: injured LT little toe on snow [place] CLINICAL INFORMATION ( PROVIDED BY ORDERING CLINICIAN) : Pain COMPARISON: None available. RESULT: No acute fracture or dislocation. Joint spaces are maintained. Plantar calcaneal enthesophyte. IMPRESSION: No acute osseous abnormality. Full Fashioned Garment Knitter: [facility] Transcribe Date/Time: Feb 03 2023 11:56A Dictated by : MADI ALBERT MD This examination was interpreted and the report reviewed and electronically signed by: JAI AGOSTO MD on Feb 03 2023 3:31PM EST [id number] Normal [facility] XR FOOT 3V AP/LAT/OBL LTon 1 04-06-2022 XR FOOT 3V AP/LAT/OBL LT * * *Final Report* * * DATE OF EXAM: Feb 03 2023 10:58AM AOX [id number] - XR FOOT 3V AP/LAT/OBL LT / PROCEDURE REASON: Pain * * * * Physician Interpretation * * * * EXAMINATION / TECHNIQUE: XR FOOT 3V AP/LAT/OBL LT, XR ANKLE 3V AP/LAT/OBL LT PATIENT/TECHNOLOGIST PROVIDED HISTORY: injured LT little toe on snow [place] CLINICAL INFORMATION ( PROVIDED BY ORDERING CLINICIAN) : Pain COMPARISON: None available. RESULT: No acute fracture or dislocation. Joint spaces are maintained. Plantar calcaneal enthesophyte. IMPRESSION: No acute osseous abnormality. Full Fashioned Garment Knitter: [employer] Transcribe Date/Time: Feb 03 2023 11:56A Dictated by : MADI ALBERT MD This examination was interpreted and the report reviewed and electronically signed by: JAI AGOSTO MD on Feb 03 2023 3:31PM EST [id number] Normal [facility] XR FOOT LEFT 3+ VIEWS (STAND CLAUDIA)on 02-02-2023 XR FOOT LEFT 3+ VIEWS (STANDARD) EXAMINATION: XR FOOT LEFT 3+ VIEWS (STANDARD) HISTORY: ORDERING SYSTEM PROVIDED HISTORY: toe injury, TECHNOLOGIST PROVIDED HISTORY: Injury/Trauma Reason for exam: L 5th toe pain Cancer History: . Surgery, RadiationHistory: . Encounter Type: Initial Mechanism of injury: stubbed her left pinky toe two days ago ORDERING SYSTEM PROVIDED DIAGNOSIS CODES: COMPARISON: None. FINDINGS: Three views of the left foot. Nondisplaced fracture involving the 5th proximal phalangeal head extending to the PIP joint. Only well seen on the AP view. No additional fractures. No subluxation or dislocation. Mild 1st MTP degenerative changes. 5 mm plantar calcaneal enthesophyte. IMPRESSION: Nondisplaced fracture of the 5th proximal phalangeal head with intraarticular only seen on the AP view. No additional fractures. Kjgxp-eb-xogxnirg heel spur. /Adociar Workstation ID: [id number] Dictated by: LINDA EPSTEIN on WedFeb 02, 2023 2:29:43 PM EST Transcribed by: SELENA DAILY on WedFeb 02, 2023 2:33:06 PM EST Finalized by: LINDA EPSTEIN on WedFeb 02, 2023 10:08:37 PM EST Normal [facility] Comment on above: Order Comment: Injur y/Trauma or Illness?:Injury/Trauma How long have you had these symptoms (acute/chronic)?:Acute Reason for exam?:L 5th toe pain History of cancer?:. Surgeries, chemotherapy, or radiation?:. Type of Exam?:Initial Mechanism of injury?:stubbed her left pinky toe two days ago Provider Note - ED v3on 03-0 Provider Note - ED v3 Provider Note: Chart Review: ED NOTES ED NOTES: Nikki is a 46 yo female presenting with left ear pain. She states that she has itchy ears and takes zyrtec. She was unable to relieve the itchiness and used the back end of a pair of tweezers. She realized that she opened the skin. There has been pain since. This was 10 days ago. She came in because she believes that the ear is infected. She denies any fever, chills, nausea, vomiting or diarrhea or vertigo like symptoms. HISTORY OF PRESENTING ILLNESS NIKKI is a 46 year old Female and was seen by me at 14-Apr-2022 17:16. The historian is the patient. Triage Information: Most recent Vital Sign Value Date PAST MEDICAL HISTORY CURRENT OR FORMER SUBSTANCE USE: Tobacco/Nicotine Use: never smoker Alcohol Use: denies Drug Use: denies,ALLERGIES/INTOLERANCE S: Allergy Allergen: penicillin Type: Drug Reaction: Swelling/Edema Allergen: amoxicillin Type: Drug Reaction: Hives/Urticaria Allergen: cephalexin Type: Drug Reaction: Hives/Urticaria HEALTH HISTORY: No documented data. OUTPATIENT MEDICATIONS: Home Medications Review Status for Reconciliation: Complete Med Status: No Current Medications SIGNIFICANT EVENTS: Past Medical History Description:patient denies history Past Surgical History Description:tubes in ear Description:gallbladder Social/Behavioral Description:denies use REVIEW OF SYSTEMS CONSTITUTIONAL: Negative for: anorexia, chills, diaphoresis, fever, malaise, weakness and weight loss EYES: Negative for: pain ENMTEars: POSITIVE for: itching and pain Negative for: discharge, hearing disturbance and hearing loss Nose: Negative for: congestion RESPIRATORY: Negative for: cough All other systems reviewed and are negative PHYSICAL EXAM CONSTITUTIONAL: Well appearing, well nourished, awake, alert, oriented to person, place, time/situation and in no apparent distress. HENMT: Airway patent, left ear with clear tympanic membrane inflamed externally with an inflamed external canal. Nasal mucosa clear. Mouth with normal mucosa. Throat has no vesicles, no oropharyngeal exudates and uvula is midline. Face with no lymph node enlargement. CRITICAL CARE VITAL SIGNS: T PRBP SpO2O2(LPM) %FiO2 Method 14-Apr-2022 17:13:[id number] 98 MDM MDM/ED COURSE: Nikki is a 46 yo female evaluated for otitis externa. The redness in the ear appears to be on the outside of the TM from the canal infection. I will treat with ear drops. Instructed on application of ear drops. Advised Nikki to change her antihistamine as she has been taking zyrtec for a while. She may have tolerance from the medication. She was agreeable with this plan of care and was discharged. DISPOSITION Diagnosis/Annotation: ED Dx Name:Otitis externa Code:H60.90 Disposition: discharged CONSULT CRITICAL CARE TIME Is this a critically ill patient: no Electronic Signatures: Saniya Choi (PHOTOGRAMMETRIST-CRM CONSULTANT) (Signed 14-Apr-2022 18:00) Authored: ED Notes, HPI, PMH, ROS, PE, Results/Vital Signs, MDM/ED Course, Clinical Impression, Attestation, Chart Review, Scores Last Updated: 14-Apr-2022 18:00 by Saniya Choi (PHOTOGRAMMETRIST-CRM CONSULTANT) [facility] DIGITAL MAMM SCREENING W/ TO Kitchen 05-16-2021 DIGITAL MAMM SCREENING W/ LORI Patient Name: NIKKI MONTES STUDY: Digital mammography screening with lori; 05/16/2021 2:51 pm ACCESSION NUMBER(S): [id number] ORDERING CLINICIAN: REGGIE AYALA INDICATION: Screening. COMPARISON: Comparison is made to prior digital mammograms dated 05/10/2020 FINDINGS: CC and MLO 2D digital mammograms and digital breast tomosynthesis images were obtained of the bilateral breasts. 3-D volume images were reconstructed in 4 views at an independent workstation as 1 mm slices through the breasts in both the CC and MLO projections. The breast tissue is heterogeneously dense, which may obscure small masses. No discrete mass or focal asymmetry is identified. No suspicious microcalcifications or foci of architectural distortion are seen. There has been no significant change. This study was interpreted with CAD. IMPRESSION: No mammographic evidence of malignancy. BI-RADS CATEGORY: Category: 1 - Negative. Recommendation: 1 Year Screening. Electronically signed by: THOM BAEZ MD [facility] Mamm - Screening Mammogram w / Tomosynthesison 05-16-2021 MG Breast Screening Normal [facility] [address] Work Phone: LMPon 04-18-2021 Last menstrual period start date IUD [facility] [address] Work Phone: [phone] Tobacco use status CPHS b) No [facility] [address] Work Phone: SALES MGR - Office Visiton 04-08 SALES MGR - Office Visit Diagnoses/Problems Assessed Screening for breast cancer (V76.10) (Z12.39) Women's annual routine gynecological examination (V72.31) (Z01.419) Screening for cervical cancer (V76.2) (Z12.4) Orders Mamm - Screening Mammogram w/ Tomosynthesis; Status:Active; Requested for:16May2021; Radiologist to Determine Optimal Study : Y What are the patient's signs and symptoms ? : Annual Screening Mammogram Follow-up visit in 12 months Outpatient Follow-up Status: Hold For - Scheduling Requested for: 18Apr2021 Provider Impressions 1) annual Exam-Cervical,colon and breast cancer screening guidelines reviewed. CBE benign. Mammogram ordered. Colon cancer screening is up to date. Pap not indicated as was cotest neg. Reviewed HPV vaccine and guidelines. Discussed safe sex practices. Discussed diet and exercise. Reviewed bone health, namely exercise with vitamin D/calcium. Reviewed fertility goals, iud. Reviewed hereditary cancer screening. Discussed that patient is not at increased risk. All questions answered. Chief Complaint PT IS HERE TODAY FOR HER ANNUAL EXAM. LAST PAP WAS 08/08/2018, COTEST NEG. HAS NO CONCERNS. DOES NOT DO A SELF BREAST CHECK. NEEDS A MAMMOGRAM ODER. LMP: IUD History of Present [id number] presents for annual exam. Patient safe at home denies abuse. Patient sexually active without concern. IUD doing well with minimal spotting. Patient has some chronic back and knee problems and working on increasing activity with the weather changing. Patient has no other acute concerns Review of Systems Constitutional: No fevers, chills Eye:no vision changes Respiratory: no SOB Cardiovascular: no chest pain Gastrointestinal: No nausea, vomiting, diarrhea, constipation, abdominal pain Genitourinary:no dysuria Gynecology: See HPI constitutional: No fevers, chills Eye:no vision changes Respiratory: no SOB Cardiovascular: no chest pain Breast: No lump/mass or discharge Gastrointestinal: No nausea, vomiting, diarrhea, constipation, abdominal pain Genitourinary:no dysuria Gynecology: See HPI Endocrine: No heat or cold intolerance Musculoskeletal: Joint pain Skin:No rash Neurologic: No numbness tingling Psychiatric: No anxiety, depression All other: all other systems reviewed and negative for complaint Active Problems Problems Encounter for management of intrauterine contraceptive device (IUD) (V25.42) (Z30.431) Motion sickness (994.6) (T75.3XXA) Screen for STD (sexually transmitted disease) (V74.5) (Z11.3) Screening for breast cancer (V76.10) (Z12.39) Screening for cervical cancer (V76.2) (Z12.4) Urine test negative (V72.41) (Z32.02) Women's annual routine gynecological examination (V72.31) (Z01.419) Past Medical History Problems History of herpes genitalis (V12.09) (Z86.19) History of screening mammography (V15.89) (Z92.89) 08/12/2018 History of Menstruation Onset age 13 years History of Pap test, as part of routine gynecological examination (V76.2) (Z01.419) 08/08/2018: Negative pap, Negative HPV : Negative pap, Negative HPV Surgical History Problems History of Adenoidectomy History of Cholecystectomy History of Myringotomy with tube placement Family History Mother Family history of Anxiety Father Family history of hypertension (V17.49) (Z82.49) Social History Problems No alcohol use No illicit drug use Non-smoker (V49.89) (Z78.9) Sexually active Allergies Medication Penicillins Hives; Swelling; Recorded By: Trang Noel; 01/31/2019 9:05:45 AM Additional reactions - RED/SWELLING amoxicillin Recorded By: Elsa Max; 04/18/2021 3:14:20 PM cephalexin Recorded By: Elsa Max; 04/18/2021 3:14:20 PM Current Meds Medication NameInstruction Doxycycline Hyclate 100 MG Oral Tablet Fluticasone Propionate 50 MCG/ACT Nasal Suspension Mirena (52 MG) IUD predniSONE 10 MG Oral Tablet Zyrtec TABS Vitals Vital Signs Recorded: 18Apr2021 03:16PM [id number] Zvsxnkhfv81 Height5 ft 5 in Yyittv526 lb 10.88 oz BMI Szahbqutaw32.72 kg/m2 BSA Calculated2.06 Tobacco Useb) No LMPIUD Physical Exam General: None acute distress Eye: Intraocular movements are intact HEENT: Normocephalic Cardiovascular: Regular rate rhythm Respiratory: Lungs are clear to auscultation, respirations are nonlabored Breast: No masses no tenderness no discharge no adenopathy or skin changes Gastrointestinal: Soft nontender nondistended normal bowel sounds Gynecology: External genitalia within normal limits for age. Urethral meatus normal bladder nontender. Vagina without discharge. No vaginal bleeding. Multipara cervix, with IUD strings appreciated. No lesions. No CMT. Uterus mobile midline nontender. No levator ani tenderness. No adnexal tenderness. No adnexal masses Musculoskeletal: Normal range of motion Skin: Warm and dry Neurologic: Alert and oriented x3 Psychiatric: Cooperative appropriate mood and affect. (more content not included)... Normal [facility] C Urineon 09-23-2018 C Urine Final Report: >100,0 00 cfu/ml Escherichia coli ORGANISM: EC SUSCEPTIBILITY RESULTS Antibiotic AMANDA Dilutn AMANDA Interp ORGANISM: EC Amox/Cla : <=8/4 S Amp : <=8 S Amp/Sul : <=8/4 S Cefaz : <=8 S Cefo : <=2 S Cipro : <=1 S Gent : <=4 S Levo : <=2 S Mingo : <=1 S Nitro : <=32 S Pip/Kobi : <=16 S Tetra : <=4 S Tobra : <=4 S SXT : <=2/38 S Normal [facility] Comment on above: Performed By: #### [id number] #### RICKEY Microbiology Subsection [address] [place] [address] [place] Mamm Screen w/CAD if perf and 3D Bilon 08-15-2018 Bilirubin.direct [Mass/Vol] Exam Date/Time: 08/12/2018 14:31 EDT Reason for Exam: SCREENING 3 D;Screening Report STUDY: Digital mammography screening with lori; 08/12/2018 2:31 pm ACCESSION NUMBER(S): [id number] ORDERING CLINICIAN: Reggie Ayala INDICATION: Screening. COMPARISON: Comparison is made to prior digital mammograms dated07/12/2017 FINDINGS: CC and MLO 2D digital mammograms and digital breast tomosynthesis images were obtained of the bilateral breasts. 3-D volume images were reconstructed in 4 views at an independent workstation as 1 mm slices through the breasts in both the CC and MLO projections. There are areas of scattered fibroglandular tissue. A well-defined intramammary lymph node is seen in the lower outer quadrant of the right breast at medium depth, similar to prior studies.No new or enlarging mass or focal asymmetry is identified. No suspicious microcalcifications or foci of architectural distortion are seen. There has been no significant change. This study was interpreted with CAD. IMPRESSION: No mammographic evidence of malignancy. BI-RADS CATEGORY: Category: 1 - Negative. Recommendation: Normal Interval Follow-up, Over Age 40. Recall Interval: 12 Months. Breast Density: Scattered Fibroglandular Density. FINAL REPORT Dictated: 08/15/2018 9:11 am Thom Baez MD Signed (Electronic Signature): 08/15/2018 9:11 am Signed by: Thom Baez MD Technologist: CANDACE Assessment: BI-RADS Category 1-Negative Recommendation: Normal interval follow-up Normal [facility] HPV High Riskon 08-12-2018 HPV High Risk [facility] Comment on above: Performed By: #### 1 [id number] #### RICKEY Send Outs Subsection [address] [place] [address] IG PAP [id number] 08-12-2018 Diagnosis: See Ref Lab Report [facility] Comment on above: Performed By: #### 1 [id number] #### RICKEY Send Outs Subsection [address] [place] [address] Pathology ([facility])on 05-07-2017 Pathology ([facility]) FINAL GYNECOLOGIC CY TOLOGY [id number] ADEQUACYSatisfactory for Evaluation. Endocervical cells/transformation zone componentpresent.GENERAL CATEGORIZATIONNegative for Intraepithelial Lesion or MalignancyCOMMENTReviewed by a pathologist due to previous abnormal history.High Risk HPV was ordered and performed at [facility]. Results arereported below in this report. A negative result is a normal result. Apositive result is an abnormal result.HPV High Risk POSITIVE: The results of this test indicate the patient'sspecimen is POSITIVE for one or more of the following HIGH RISK HPV types:16/18/31/33/35/39/45/5 1/52/56/58/59/66/68. RELATED LABORATORY RESULTSOrdered by: TIZANOrd Date: 05/07/2017 Ord Time: 20:34Test Collected Result Abnormal Range Units SpecimenName D&T TypeHPV Positive AB NA MSCRNA, 8HighRiskThe HPV test detects E6/E7 viral messenger RNA (mRNA) high-risk HPV gjzddrksu18,18,31,33,35,39,4 5,51,55,58,59,66, and 68 which are associated with cervicalcancer and its precursor lesions. However, cross-reactions with othergenotypes may occur. Results should be correlated with cytologic andhistologic findings. Sensitivity may be affected by cellularity of specimen.CLINICAL HISTORYComment: No LMP provided.SPECIMEN(A) SCREENING CERVICAL/ENDOCERVICAL LIQUID-BASED PAPPerformed at [facility], [address] [place], [place] [address]Screened by: ELIZABETH MORENO Brass Roller Signed Out by: JEAN HOLLIS M.D. Reported: 05/13/2017 Normal [facility] Comment on above: Performed By: #### G YN ####[facility] [id number] [place] [address] Vital Signs Date Time Vital Sign Value Performing Clinician Facility 07-21-2024 15:040 Body height 165.1 cm Aliyah CAVANAUGHC Work Phone: [facility] 07-21-2024 15:06040 Body mass index (BMI) [Ratio] 27.8 kg/m2 Aliyah Mccartney NP-C Work Phone: [facility] 07-21-2024 15:040 Body weight 75.74 kg Aliyah Mccartney NP-C Work Phone: [facility] 05-31-2024 15:040 Body height 165.1 cm Radha Ramos MD Work Phone: [facility] 05-31-2024 15:040 Body mass index (BMI) [Ratio] 28.09 kg/m2 Radha Ramos MD Work Phone: [facility] 05-31-2024 15:040 Body weight 76.57 kg Radha Ramos MD Work Phone: [facility] 05-31-2024 15:19-0400 Diastolic blood pressure 72 mm[Hg] Radha Ramos MD Work Phone: [facility] 05-31-2024 15:19-0400 Systolic blood pressure 108 mm[Hg] Radha Ramos MD Work Phone: [facility] 04-20-2024 15:23-0400 Body weight 81.3 kg Aliyah Mccartney FLOOR COVERING INSTALLER-C Work Phone: [facility] 01-26-2024 16:25-0500 Body mass index (BMI) [Ratio] 31.85 kg/m2 Aliyah Mccartney PHOTOGRAMMETRIST-CRM CONSULTANT Work Phone: [facility] 01-26-2024 16:25-0500 Body weight 86.82 kg Aliyah Mccartney PHOTOGRAMMETRIST-CRM CONSULTANT Work Phone: [facility] 12-09-2023 15:46-0400 Body mass index (BMI) [Ratio] 33.78 kg/m2 Aliyah Mccartney PHOTOGRAMMETRIST-CRM CONSULTANT Work Phone: [facility] 12-09-2023 15:46-0400 Body weight 92.08 kg Aliyah Mccartney PHOTOGRAMMETRIST-CRM CONSULTANT Work Phone: [facility] 04-14-2022 19:13-0500 Body height 165.1 cm Ap Furness Other Phone: [facility] 04-14-2022 19:13-0500 Body temperature 97.7 [degF] Ap Furness Other Phone: [facility] 04-14-2022 19:13-0500 Diastolic blood pressure 55 mm[Hg] Ap Furness Other Phone: [facility] 04-14-2022 19:13-0500 Heart rate 86 /min Ap Furness Other Phone: [facility] 04-14-2022 19:13-0500 Respiratory rate 16 /min Ap Furness Other Phone: [facility] 04-14-2022 19:13-0500 SaO2% (BldA) [Mass fraction] 98 % Aplori Mazariegosess Other Phone: [facility] 04-14-2022 19:13-0500 Systolic blood pressure 110 mm[Hg] Aplori Mazariegosess Other Phone: [facility] 04-18-2021 15:16-0500 Body height 165.1 cm Ap T Furness Work Phone: [employer] Work Phone: 04-18-2021 15:16-0500 Body mass index (BMI) [Ratio] 36.72 kg/m2 Ap T Furness Work Phone: [employer] Work Phone: 04-18-2021 15:16-0500 Body surface area Derived from formula 2.06 m2 Ap T Furness Work Phone: [employer] [address] Work Phone: 04-18-2021 15:16-0500 Body weight 100.1 kg Ap T Furness Work Phone: [employer] [address] Work Phone: 04-18-2021 15:16-0500 Diastolic blood pressure 80 mm[Hg] Ap T Furness Work Phone: [employer] [address] Work Phone: 04-18-2021 15:16-0500 Systolic blood pressure 122 mm[Hg] Ap T [place] Work Phone: [address] [place] Work Phone: 04-15-2021 18:52-0500 Body height 164 cm Ap Smalls Other Phone: [facility] 04-15-2021 18:52-0500 Body temperature 98.6 [degF] Ap [place] Other Phone: [facility] 04-15-2021 18:52-0500 Diastolic blood pressure 82 mm[Hg] Ap [place] Other Phone: [facility] 04-15-2021 18:52-0500 Heart rate 103 /min Ap [place] Other Phone: [facility] 04-15-2021 18:52-0500 SaO2% (BldA) [Mass fraction] 97 % Ap [place] Other Phone: [facility] 04-15-2021 18:52-0500 Systolic blood pressure 122 mm[Hg] Ap [place] Other Phone: [facility] 10-22-2020 18:20-0400 Body height 165.1 cm Ap [place] Other Phone: [facility] 10-22-2020 18:20-0400 Body temperature 98.06 [degF] Ap [place] Other Phone: [facility] 10-22-2020 18:20-0400 Diastolic blood pressure 74 mm[Hg] Ap [place] Other Phone: [facility] 10-22-2020 18:20-0400 Heart rate 125 /min Ap [place] Other Phone: [facility] 10-22-2020 18:20-0400 SaO2% (BldA) [Mass fraction] 95 % Ap [place] Other Phone: [facility] 10-22-2020 18:20-0400 Systolic blood pressure 104 mm[Hg] Ap [place] Other Phone: [facility] Encounters Encounter Date Encounter Type Care Provider Facility Start: 10-23-2024 End: 10-23-2024 Patient encounter procedure Aliyah PAEZ -[facility] Work Phone: Start: 10-23-2024 End: 10-23-2024 ambulatory Aliyah Mccartney [facility] Start: 07-21-2024 End: 07-21-2024 Patient encounter procedure Aliyah Mccartney FLOOR COVERING INSTALLER-C -[facility] Work Phone: Start: 07-21-2024 End: 07-21-2024 ambulatory Aliyah Mccartney [facility] Work Phone: Start: 05-31-2024 End: 05-31-2024 Initial preventive medicine new patient 40-64yrs Radha Ramos MD Work Phone: [facility] Comment on above: Well woman exam with routine gynecological exam (Primary Dx); Breast cancer screening by mammogram; Screening for cervical cancer; Vaginal yeast infection Start: 05-31-2024 End: 05-31-2024 Patient encounter procedure Radha Ramos MD Work Phone: [facility] Work Phone: Start: 05-31-2024 End: 05-31-2024 ambulatory [facility] Start: 05-31-2024 End: 05-31-2024 Encounter for gynecological examination (general) (routine) without abnormal findings [facility] Start: 04-20-2024 End: 04-20-2024 Patient encounter procedure Aliyah Mccartney ROSE-C -[facility] Work Phone: Start: 04-20-2024 End: 04-20-2024 ambulatory Aliyahjey Mccartney Facility:[facility] Start: 01-26-2024 End: 01-26-2024 Office outpatient visit 15 minutes Aliyah Mccartney PHOTOGRAMMETRIST-CRM CONSULTANT Work Phone: [facility] Comment on above: Primary osteoarthrit is of both knees (Primary Dx) Start: 01-26-2024 End: 01-26-2024 ambulatory [facility] Start: 01-19-2024 End: 01-19-2024 ambulatory [facility] Start: 01-17-2024 End: 01-17-2024 ambulatory [facility] Start: 01-14-2024 End: 01-14-2024 ambulatory ALTAGRACIA Mcfadden [facility] Start: 01-10-2024 End: 01-10-2024 ambulatory ALTAGRACIA Mcfadden [facility] Start: 01-05-2024 End: 01-05-2024 ambulatory [facility] Start: 12-22-2023 End: 12-22-2023 ambulatory [facility] Start: 12-09-2023 End: 12-09-2023 Office outpatient visit 25 minutes Aliyah Albertina Bib PHOTOGRAMMETRIST-CRM CONSULTANT Work Phone: [facility] Comment on above: Primary osteoarthrit is of both knees (Primary Dx) Start: 12-09-2023 End: 12-09-2023 ambulatory [facility] Start: 10-28-2023 End: 10-28-2023 Office outpatient visit 15 minutes Aliyah Albertina Bib PHOTOGRAMMETRIST-CRM CONSULTANT Work Phone: [facility] Comment on above: Primary osteoarthrit is of both knees (Primary Dx) Start: 10-28-2023 End: 10-28-2023 ambulatory [facility] Start: 09-24-2023 End: 09-24-2023 Office outpatient new 45 minutes Aliyah Mccartney PHOTOGRAMMETRIST-CRM CONSULTANT Work Phone: [facility] Comment on above: Primary osteoarthrit is of both knees (Primary Dx); Pain in both knees, unspecified chronicity Start: 09-24-2023 End: 09-24-2023 Subsequent hospital visit by physician Nam [id number] X-Ray [facility] Comment on above: Pain in both knees, unspecified chronicity Start: 09-24-2023 End: 09-24-2023 ambulatory [facility] Start: 02-03-2023 End: 02-03-2023 ambulatory AP SMALLS Facility:[facility] Start: 02-02-2023 End: 02-02-2023 Emergency department patient visit PHYSICIAN [facility] Start: 04-14-2022 End: 04-14-2022 Emergency department patient visit Saniya Choi [facility]note 3[facility] 04 Start: 05-19-2021 Chart Update Ap Mcfadden Yair yu Work Phone: [facility] Work Phone: Start: 05-16-[address] Ap Santiago Serina Facility:[id number] Start: 04-18-2021 Periodic preventive med est patient 40-64yrs Ap Mcfadden Serina Work Phone: [facility] [employer] Work Phone: Start: 04-15-2021 End: 04-15-2021 Emergency department patient visit [facility] Start: 10-22-2020 End: 10-22-2020 Emergency department patient visit [facility] Start: 07-12-2017 Patient encounter Facil [id number] Encounter for gynecological examination (general) (routine) without abnormal findings Ap Mcfadden Serina Work Phone: [facility] [employer] Work Phone: Comment on above: 08/08/2018: Negative p ap, Negative HPV: Negative pap, Negative HPV; Patient encounter procedure Ap Mcfadden Serina Work Phone: [facility] Work Phone: Procedures Date Procedure Procedure Detail Performing Clinician Start: 01-26-2024 Follow-up visit Follow-up ALIYAH MCCARTNEY Start: 12-09-2023 Arthrocentesis aspir &/inj major jt/bursa w/o us Aliyah Mccartney PHOTOGRAMMETRIST-CRM CONSULTANT Work Phone: Start: 09-24-2023 Arthrocentesis aspir &/inj major jt/bursa w/o us Aliyah Mccartney PHOTOGRAMMETRIST-CRM CONSULTANT Work Phone: Start: 05-16-2021 Mammography Nam X-Ray Adenoid excision Ap longo Work Phone: Cholecystectomy Ap adkins Work Phone: Myringotomy and inse rtion of tympanic ventilation tube Ap Mcfadden Yairaimee Work Phone: Plan of Treatment Date Care Activity Detail Author Start: 2026 Zoster Vaccines (1 o f 2) Zoster Vaccines (1 of 2) [facility] Start: 10-09-2024 Influenza vaccination Influenz a Vaccine (Season Ended) [facility] Start: 05-31-2024 End: 07-31-2025 DBT Breast - bilateral BI mammo bilateral screening tomosynthesis Imaging Routine Breast cancer screening by mammogram Expected: 05/31/2024, Expires: 07/31/2025 [facility] Service Area Work Phone: Comment on above: Expected: 05/31/2024 , Expires: 07/31/2025 Start: 02-08-2024 End: 02-08-2024 Patient encounter procedure 02/08/2024 9:30 AM EST Office Visit [facility] [address] [place] [id number] Aliyah Mccartney, PHOTOGRAMMETRIST-CRM CONSULTANT [address] [facility] [place] [address] [facility] Start: 12-22-2023 End: 12-22-2023 ambulatory 12/22/2023 4:45 PM EST Evaluation [facility] [address] [place] [address] Odin Fatima, PT [address] [facility] [place] [address] [facility] Start: 12-09-2023 End: 12-09-2023 Patient encounter procedure 12/09/2023 4:00 PM EDT Office Visit [facility] [address] [place] [id number] Aliyah Mccartney, PHOTOGRAMMETRIST-CRM CONSULTANT [address] [facility] [place] [address] [facility] Start: 10-28-2023 End: 10-28-2023 Patient encounter procedure 10/28/2023 1:15 PM EDT Office Visit [facility] [address] [place] [id number] Aliyah Mccartney, PHOTOGRAMMETRIST-CRM CONSULTANT [address] [facility] [place] [address] [facility] Start: 10-10-2023 COVID-19 Vaccine ( season) COVID-19 Vaccine ( season) [facility] Start: 10-10-2023 COVID-19 Vaccine ( season) COVID-19 Vaccine ( season) [facility] Start: 10-10-2023 Influenza vaccination Influenza Vacc ine (#1) [facility] Start: 09-22-2023 End: 09-21-2024 XR Knee - bilateral 4 Views XR knee 4+ views bilateral Imaging Routine Pain in both knees, unspecified chronicity Expected: 09/22/2023, Expires: 09/21/2024 [facility] Service Area Work Phone: Comment on above: Expected: 09/22/2023 , Expires: 09/21/2024 Start: 10-09-2022 COVID-19 Vaccine ( season) COVID-19 Vaccine ( season) [facility] Start: 05-16-2022 Screening for malignant neoplasm of breast Mammogram [facility] Start: 09-12-2021 DTaP/Tdap/Td Vaccine s (2 - Td or Tdap) DTaP/Tdap/Td Vaccines (2 - Td or Tdap) [facility] Start: 04-18-2021 Patient encounter procedure [facility] Start: 02-22-2009 MMR Vaccines (1 of 1 - Standard series) MMR Vaccines (1 of 1 - Standard series) [facility] Start: 1997 Screening for malignant neoplasm of cervix [facility] Start: 09-14-1995 Hepatitis B Vaccines (1 of 3 - 19+ 3-dose series) Hepatitis B Vaccines (1 of 3 - 19+ 3-dose series) [facility] Start: 1994 Hepatitis C screening Hepatitis C Sc reening [facility] Start: 1976 HIV screening HIV Screening [facility] Start: 1976 Lipid panel Lipid Panel [facility] Start: 1976 Screening for malignant neoplasm of colon [facility] Start: 1976 Yearly Adult Physical Yearly Adult P hysical [facility] Cytology Cervical or vaginal smear or scraping study THINPREP PAP TEST Pathology and Cytology Routine Screening for cervical cancer 05/31/2024 3:57 PM EDT [facility] Work Phone: End: 09-24-2023 XR Knee - bilateral 4 Views [facility] Service Area Work Phone: Comment on above: Once for 1 Occurrenc es starting 09/24/2023 until 09/24/2023 Immunizations Immunization Date Immunization Notes Care Provider Louise pierre 2011 tetanus toxoid, redu sushant diphtheria toxoid, and acellular pertussis vaccine, adsorbed Ap Ricardo Smalls Work Phone: [address] Work Phone: Comment on above: Series: 01-25-2009 influenza virus vaccine, unspecified formulation Nam X-Ray [facility] Work Phone: Payers Date Payer Category Payer Self-pay 2023 Managed Care (Private) [employer] [id number] 2023 Private Health Insurance [facility] [id number] 2023-Present [place] [id number] 2023 Private Health Insurance [id number] 2003 Private Health Insurance [id number] 2003 Private Health Insurance [facility] [id number] 2003 Unknown 1976 Unknown [id number] [id number]. 2.1068 1976 Unknown [id number] 2.16840.1.876585.3.579. 2.1068 1976 Unknown [id number] 2.16840.1.586781.3.579. 2.2 1976 Unknown [id number] 2.16840.1.327387.3.579. 2.1242 1976 Unknown [id number] 2.16840.1.584107.3.579. 2.1242 1976 Unknown [id number] 2.16840.1.797937.3.579. 2.1242 1976 Unknown [id number] 2.16840.1.730804.3.579. 2.1242 1976 Unknown [id number] 2.16.840.1.519973.3.579. 2.1242 1976 Unknown [id number] 2.16840.1.924764.3.579. 2.1243 1976 Unknown [id number] 2.16.840.1.562519.3.579. 2.1243 1976 Unknown [id number] 2.16.840.1.869595.3.579. 2.1244 1976 Unknown [id number] 2.16.840.1.296454.3.579. 2.1244 1976 Unknown [id number] 2.16.840.1.288904.3.579. 2.1244 1976 Unknown [id number] 2.16.840.1.305085.3.579. 2.1243 1976 Unknown [id number] 2.16.840.1.256353.3.579. 2.1244 Unknown [id number] 2.16.840.1.398978.3.579. 2.462 Unknown [id number] 2.16.840.1.415062.3.579. 2.462 Unknown [id number] 2.16.840.1.472724.3.579. 2.462 Social History Date Type Detail Facility [facility] Tobacco smoking consumption unknown [facility] Start: 12-09-2023 End: 12-22-2023 No alcohol use No alcohol use [facility] Work Phone: Start: 09-24-2023 End: 07-21-2024 Tobacco smoking status NHIS Never smoked tobacco [facility] Work Phone: Start: 09-24-2023 Tobacco use and exposure Smokeless tobacco non-user [facility] Work Phone: Start: 12-09-2023 End: 01-26-2024 Alcoholic beverage intake Ex-drinker (finding) [facility] Work Phone: Start: 12-09-2023 End: 12-22-2023 Tobacco use panel [facility] Work Phone: Start: 1975 [facility] Start: 09-24-2023 Gender identity Identifies as female gender (finding) [facility] Work Phone: Start: 09-14-2023 End: 05-31-2024 Exposure to SARS-CoV-2 (event) Not sure [facility] Start: 05-31-2024 Alcoholic beverage intake Lifetime non-drinker (finding) [facility] Work Phone: Within the last year , have you been afraid of your partner or ex-partner? No [facility] Work Phone: How often to you hav e a drink containing alcohol? Never [facility] Work Phone: How many standard drinks containing alcohol do you have on a typical day? Patient does not drink [facility] Work Phone: Functional Status Date Assessment Result Facility 05-31-2024 Humiliation, Afraid, Rape, and Kick questionnaire [HARK] [facility] Work Phone: [facility] Work Phone: Clinical Notes 02-03-2023 to 07-21-2024 Note Date & Type Note Facility 07-21-2024 Evaluation note Diagnosis Onset Date Resolution Bilateral primary osteoarthritis of knee acute July 3:05pm [facility] Work Phone: 1(490) 805-884404-23-2025 History of Present illness Narrative* Radha Ramos MD - 05/31/2024 3:20 PM EDT Assessment/Plan: Nikki Montes is a 48 y.o. female who presents to clinic today to address the following issues: 1. Well woman exam with routine gynecological exam 2. Breast cancer screening by mammogram BI mammo bilateral screening tomosynthesis 3. Screening for cervical cancer THINPREP PAP TEST 4. Vaginal yeast infection fluconazole (Diflucan) 150 mg tablet Pap smear: done today, if wnl repeat 5 years Mammogram: ordered DV: negative 05/2024 DEXA: [facility] Routine well woman exam within normal limits with exception of probable vaginal yeast infection will treat with Diflucan. Pap smear mammogram ordered today Unfortunately unable to visualize patient's IUD strings so she will contact local [employer] [facility] for potential removal in the OR. Problem List Items Addressed This Visit None Visit Diagnoses Well woman exam with routine gynecological exam - Primary Breast cancer screening by mammogram Relevant Orders BI mammo bilateral screening tomosynthesis Screening for cervical cancer Relevant Orders THINPREP PAP TEST Vaginal yeast infection Relevant Medications fluconazole (Diflucan) 150 mg tablet There are no Patient Instructions on file for this visit. Follow up: as needed Return precautions discussed. An After Visit Summary was given to the patient. All questions were answered and patient in agreement with plan. Subjective: Nikki Montes is a 48 y.o. female who presents to clinic today for No chief complaint on file. HPI: Gynecologic History: (Please complete obstetric history in the history tab) - Do you have any menstrual concerns? No, hasn't really had cycles for 16 years - Do you have any breast concerns? no - Date of last pap smear: 08/08/2018 - Results of last pap smear, if known: cotest negative - Personal history of prior abnormal pap smear?: yes, - Date of last mammogram: 05/2021 - Results of last mammogram: normal - Personal history of prior abnormal mammogram: no Sexual history (provider to ask): - Have you been sexually active within the past year? yes - What are the genders of your sexual partner(s)? male - Are you or your spouse/partner wanting to become or have children in the next year? no - If no, are you currently using any method to prevent :? IUD w/progesterone Mirena IUD placed 01/31/2019, previously had heavy periods and crampings, had nothing afterwards - Do you have any questions or concerns about contraceptive access? 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 yes - Do you want comprehensive STI testing today? no Domestic Violence Screening (Provider to ask): Because violence is so common in many people's lives and because there is help available for those being abused, I now ask every patient about domestic violence: - Within the past year have you been hit, slapped, kicked or otherwise physically hurt by someone? no - Are you in a relationship with a person who threatens or physically hurts you? no - Has anyone forced you to have sexual activities that made you feel uncomfortable? no Review of Systems Objective: BP 108/72 Ht 1.651 m (5' 5) Wt 76.6 kg (168 lb 12.8 oz) LMP (LMP Unknown) No BMI 28.09 kg/m Physical Exam Vitals and nursing note reviewed. Exam conducted with a agricultural mechanic present (Franchesca). Constitutional: General: She is not in acute distress. Appearance: Normal appearance. HENT: Head: Normocephalic and atraumatic. Mouth/Throat: Mouth: Mucous membranes are moist. Eyes: General: No scleral icterus. Right eye: No discharge. Left eye: No discharge. Extraocular Movements: Extraocular movements intact. Conjunctiva/sclera: Conjunctivae normal. Pulmonary: Effort: Pulmonary effort is normal. No respiratory distress. Chest: Chest wall: No mass, lacerations or deformity. Breasts: Salvador Score is 5. Breasts are symmetrical. Right: Normal. Left: Normal. Abdominal: General: Abdomen is flat. There is no distension. Palpations: Abdomen is soft. Genitourinary: General: Normal vulva. Exam position: Supine. Pubic Area: No rash or pubic lice. Salvador stage (genital): 5. Vagina: Normal. Cervix: Normal. Comments: No IUD strings visualized Thick white discharge Lymphadenopathy: Upper Body: Right upper body: No supraclavicular, axillary or pectoral adenopathy. Left upper body: No supraclavicular, axillary or pectoral adenopathy. Skin: General: Skin is warm and dry. Neurological: General: No focal deficit present. Mental Status: She is alert and oriented to person, place, and time. Psychiatric: Attention and Perception: Attention normal. Mood and Affect: Mood normal. Speech: Speech normal. Behavior: Behavior normal. Cognition and Memory: Cognition and memory normal. Judgment: Judgment normal. I spent 17 minutes in total time for this visit including all related clinical activities before, during, and after the visit excluding other billable activities/procedure time. Radha Ramos MD [facility] Work Phone: 1(124) 900-155012-19-2024 Evaluation + Plan note* Assessment & Plan Note - CHERY Aguilera - 01/27/2024 8:26 AM ESTAssociated Problem(s): Primary osteoarthritis of both knees We reviewed conservative measures for knee OA symptom control. Patient to continue to take prescription meloxicam and Tylenol per package directions, diclofenac gel up to 4 times daily. Continue with brace with medial offloading for wt bearing or aggravating activity Encourage patient to continue with home exercises and weight loss journey, she is making excellent progression Plan for follow-up here on a as needed basis Patient in agreement with plan of care This note was generated using [employer] software. It may contain errors in wording, punctuation or spelling. [facility] Work Phone: 1(592) 128-295412-19-2024 Miscellaneous Notes* Assessment & Plan Note - CHERY Aguilera - 01/27/2024 8:26 AM ESTAssociated Problem(s): Primary osteoarthritis of both knees We reviewed conservative measures for knee OA symptom control. Patient to continue to take prescription meloxicam and Tylenol per package directions, diclofenac gel up to 4 times daily. Continue with brace with medial offloading for wt bearing or aggravating activity Encourage patient to continue with home exercises and weight loss journey, she is making excellent progression Plan for follow-up here on a as needed basis Patient in agreement with plan of care This note was generated using [employer] software. It may contain errors in wording, punctuation or spelling. documented in [facility] encounter[facility] Work Phone: 1(747) 982-941812-18-2024 History of Present illness Narrative* CHERY Aguilera - 01/26/2024 4:45 PM EST Subjective Patient ID: Nikki Montes is a 48 y.o. female. Chief Complaint: Follow-up of the Right Knee and Follow-up of the Left Knee Right Knee Left Knee Nikki is a pleasant 48 yo presenting for 1follow-up of bilat knee pain, activity intolerance for 10-12 yrs No remote or recent injury or identified Significant improvement in sx, patient states that combination of injections and PT have helped improve her symptoms greatly. Right knee is at 100% functioning, left knee is slightly behind. Patient has attended 5 PT sessions and continues with home exercises on a daily basis. Patient is continuingwith her weight loss journey and overall is able to participate in think she wants and needs to do. Review of Systems Constitutional: Negative. HENT: Negative. Respiratory: Negative. Cardiovascular: Negative. Endocrine: Negative. Musculoskeletal: Positive for arthralgias. Skin: Negative. Neurological: Negative. Hematological: Negative. Psychiatric/Behavioral: Negative. Objective Right Knee Exam Tenderness The patient is experiencing tenderness in the medial joint line. Range of Motion Extension: 0 Flexion: 140 Tests Mohinder: Lateral - negative Varus: negative Valgus: negative Drawer: Anterior - negative Posterior - negative Other Erythema: absent Sensation: normal Pulse: present Swelling: mild Comments: No tenderness remains over distal IT band Full ROM distal joints with distal neurovacular intact with cap refill at 2 seconds Left Knee Exam Tenderness The patient is experiencing tenderness in the lateral joint line. Range of Motion Extension: 0 Flexion: 120 Tests Mohinder: Medial - negative Lateral - positive Varus: negative Valgus: negative Drawer: Anterior - negative Posterior - negative Other Erythema: absent Sensation: normal Pulse: present Swelling: mild Comments: Mild lateral discomfort remains on full range of motion testing Full ROM distal joints with no crepitus, distal neurovacular intact with cap refill at 2 seconds Image Results: === 09/24/23 === XR KNEE 4+ VIEWS BILATERAL - Impression - Minimal degenerative changes involving the medial compartment of the right knee joint; otherwise unremarkable exam. Signed by: Amish Sheets 09/29/2023 2:41 PM Dictation workstation: [id number] Reviewed PT eval and most recent note, patient is progressing well Assessment/Plan Encounter Diagnoses: documented in [facility] Work Phone: [phone] [id number] Evaluation + Plan note* Assessment & Plan Note - CHERY Aguilera - 12/10/2023 1:06 PM EDTAssociated Problem(s): Primary osteoarthritis of both knees We reviewed conservative measures for knee OA symptom control. Patient to continue to take prescription meloxicam and Tylenol per package directions, diclofenac gel up to 4 times daily. Recommended OA reaction brace with medial offloading for wt bearing activities, declines offer of fitting of brace here Recommend formal PT for eval and treat Repeat cortisone injections provided today, patient with positive lidocaine suppression at end of visit Plan will be to follow-up here in approximately 2 months, sooner for changes or concerns At that time, will review PT notes, effectiveness of oral and injectable medications. We did discuss possibility of requesting Visco for future symptom control versus advanced imaging. Patient in agreement with plan of care This note was generated using [employer] software. It may contain errors in wording, punctuation or spelling. [facility] Work Phone: [phone] 733-558411-01-2024 Miscellaneous Notes* Assessment & Plan Note - CHERY Aguilera - 12/10/2023 1:06 PM EDTAssociated Problem(s): Primary osteoarthritis of both knees We reviewed conservative measures for knee OA symptom control. Patient to continue to take prescription meloxicam and Tylenol per package directions, diclofenac gel up to 4 times daily. Recommended OA reaction brace with medial offloading for wt bearing activities, declines offer of fitting of brace here Recommend formal PT for eval and treat Repeat cortisone injections provided today, patient with positive lidocaine suppression at end of visit Plan will be to follow-up here in approximately 2 months, sooner for changes or concerns At that time, will review PT notes, effectiveness of oral and injectable medications. We did discuss possibility of requesting Visco for future symptom control versus advanced imaging. Patient in agreement with plan of care This note was generated using [employer] software. It may contain errors in wording, punctuation or spelling. documented in this [facility] Work Phone: 1([phone] 350-540110-31-2024 History of Present illness Narrative* CHERY Aguilera - 12/09/2023 4:00 PM EDTAssociated Order(s): L Inj/Asp: bilateral knee Subjective Patient ID: Nikki Montes is a 48 y.o. female. 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 Declined product here from the office Cortisone injection provided at last visit did help improve symptoms, currently feels they have totally worn off. Symptoms are worsened with steps (up worse), squatting, some difficulty with shoes and socks Left knee aggravated more than right at today's visit Companied by spouse for today's visit, inquiring about repeat injections Review of Systems Constitutional: Negative. HENT: Negative. Respiratory: Negative. Cardiovascular: Negative. Endocrine: Negative. Musculoskeletal: Positive for arthralgias. Skin: Negative. Neurological: Negative. Hematological: Negative. Psychiatric/Behavioral: Negative. Objective Right Knee Exam Tenderness The patient is experiencing tenderness in the medial joint line. Range of Motion Extension: 0 Flexion: 120 Tests Mohinder: Medial - positive Lateral - negative Varus: negative Valgus: negative Drawer: Anterior - negative Posterior - negative Other Erythema: absent Sensation: normal Pulse: present Swelling: mild Comments: Mild medial swelling, + medial joint pain, mild tenderness over distal IT band Full ROM distal joints with mild crepitus, distal neurovacular intact with cap refill at 2 seconds Left Knee Exam Tenderness The patient is experiencing tenderness in the lateral joint line. Range of Motion Extension: 0 Flexion: 120 Tests Mohinder: Medial - negative Lateral - positive Varus: negative Valgus: negative Drawer: Anterior - negative Posterior - negative Other Erythema: absent Sensation: normal Pulse: present Swelling: mild Comments: Mild lat swelling, + lat joint pain, moderate tenderness over distal IT band Full ROM distal joints with mild crepitus, distal neurovacular intact with cap refill at 2 seconds Image Results: === 09/24/23 === XR KNEE 4+ VIEWS BILATERAL - Impression - Minimal degenerative changes involving the medial compartment of the right knee joint; otherwise unremarkable exam. Signed by: Amish Sheets 09/29/2023 2:41 PM Dictation workstation: [id number] Patient ID: Nikki Montes is a 48 y.o. female. L Inj/Asp: bilateral knee on 12/09/2023 4:02 PM Indications: pain and joint swelling Details: 22 G needle, superolateral approach Medications (Right): 40 mg triamcinolone acetonide 40 mg/mL Medications (Left): 40 mg triamcinolone acetonide 40 mg/mL Outcome: tolerated well, no immediate complications We discussed risk and benefits of cortisone injection, patient wishes to proceed via verbal consent. Skin was prepped with Betadine, vapo coolant spray and alcohol. Administered injection of 40 mg Kenalog, 3 cc 2% lidocaine and 3 cc of 0.25% bupivacaine. Patient tolerated injection well with lidocaine suppression. No active bleeding, bandage applied to site. Procedure, treatment alternatives, risks and benefits explained, specific risks discussed. Consent was given by the patient. Immediately prior to procedure a time out was called to verify the correctpatient, procedure, equipment, senior administrative support and site/side marked as required. Patient was prepped and draped in the usual sterile fashion. Assessment/Plan Encounter Diagnoses: Problem List Items Addressed This Visit ICD-10-CM Primary osteoarthritis of both knees M17.0 We reviewed conservative measures for knee OA symptom control. Patient to continue to take prescription meloxicam and Tylenol per package directions, diclofenac gel up to 4 times daily. Recommended OA reaction brace with medial offloading for wt bearing activities, declines offer of fitting of brace here Recommend formal PT for eval and treat Repeat cortisone injections provided today, patient with positive lidocaine suppression at end of visit Plan will be to follow-up here in approximately 2 months, sooner for changes or concerns At that time, will review PT notes, effectiveness of oral and injectable medications. We did discuss possibility of requesting Visco for future symptom control versus advanced imaging. Patient in agreement with plan of care This note was generated using [employer] software. It may contain errors in wording, punctuation or spelling. Relevant Orders Referral to Physical Therapy documented in this encounterUniversity [facility] Work Phone: [phone] 588-627709-20-2024 Evaluation + Plan note* Assessment & Plan Note - CHERY Aguilera - 10/29/2023 1:08 PM EDTAssociated Problem(s): Primary osteoarthritis of both knees We reviewed conservative measures for knee OA symptom control. Patient to continue to take Tylenol per package directions, diclofenac gel up to 4 times daily. Recommended OA reaction brace with medial offloading for wt bearing activities, we reviewed models available online Continue home exercises for knee aconditioning (AAOS) and advance as tolerated. Plan will be to follow-up here in approximately 6 weeks, sooner for changes or concerns. This note was generated using [employer] software. It may contain errors in wording, punctuation or spelling. [facility] Work Phone: 1([phone]) 516-727109-20-2024 Miscellaneous Notes* Assessment & Plan Note - CHERY Aguilera - 10/29/2023 1:08 PM EDTAssociated Problem(s): Primary osteoarthritis of both knees We reviewed conservative measures for knee OA symptom control. Patient to continue to take Tylenol per package directions, diclofenac gel up to 4 times daily. Recommended OA reaction brace with medial offloading for wt bearing activities, we reviewed models available online Continue home exercises for knee aconditioning (AAOS) and advance as tolerated. Plan will be to follow-up here in approximately 6 weeks, sooner for changes or concerns. This note was generated using [employer] software. It may contain errors in wording, punctuation or spelling. documented in this [facility] Work Phone: [phone]) [phone] History of Present illness Narrative* CHERY Aguilera - 10/28/2023 1:15 PM EDT Subjective Patient ID: Nikki Montes is a 48 y.o. female. Chief Complaint: Pain of the Right Knee and Pain of the Left Knee Last Surgery: No surgery found Last Surgery Date: No surgery found HPI: Nikki is a pleasant 48 yo presenting for FUV for Bilat knee sx for 10-12 yrs No prior inj or surgery No recent injury or identified Ibuprofen helps a little No braces or wraps Cortisone injection from last visit with good symptom improvement Agg with steps (up worse), squatting, some difficulty with shoes and socks but improved since initial visit Mobic helps, would like to continue Review of Systems Constitutional: Negative. HENT: Negative. Respiratory: Negative. Cardiovascular: Negative. Endocrine: Negative. Musculoskeletal: Positive for arthralgias. Skin: Negative. Neurological: Negative. Hematological: Negative. Psychiatric/Behavioral: Negative. Objective Right Knee Exam Tenderness The patient is experiencing tenderness in the medial joint line. Range of Motion Extension: 0 Flexion: 120 Tests Mohinder: Medial - positive Lateral - negative Varus: negative Valgus: negative Drawer: Anterior - negative Posterior - negative Other Erythema: absent Sensation: normal Pulse: present Swelling: mild Comments: + lat joint pain and improved since last visit, mild tenderness over distal IT band Full ROM distal joints with mild crepitus, distal neurovacular intact with cap refill at 2 seconds Left Knee Exam Tenderness The patient is experiencing tenderness in the lateral joint line. Range of Motion Extension: 0 Flexion: 130 Tests Mohinder: Medial - negative Lateral - positive Varus: negative Valgus: negative Drawer: Anterior - negative Posterior - negative Other Erythema: absent Sensation: normal Pulse: present Swelling: mild Comments: Minimal lat swelling, + lat joint pain; both improved since last visit mild tenderness remains over distal IT band Full ROM distal joints with mild crepitus, distal neurovacular intact with cap refill at 2 seconds Image Results: This SmartLink has not been configured with any valid records. === 09/24/23 === XR KNEE 4+ VIEWS BILATERAL - Impression - Minimal degenerative changes involving the medial compartment of the right knee joint; otherwise unremarkable exam. Signed by: Amish Sheets 09/29/2023 2:41 PM Dictation workstation: [id number] Assessment/Plan Encounter Diagnoses: Problem List Items Addressed This Visit ICD-10-CM Primary osteoarthritis of both knees - Primary M17.0 We reviewed conservative measures for knee OA symptom control. Patient to continue to take Tylenol per package directions, diclofenac gel up to 4 times daily. Recommended OA reaction brace with medial offloading for wt bearing activities, we reviewed models available online Continue home exercises for knee aconditioning (AAOS) and advance as tolerated. Plan will be to follow-up here in approximately 6 weeks, sooner for changes or concerns. This note was generated using [employer] software. It may contain errors in wording, punctuation or spelling. documented in this encounterUnC[facility] Work Phone: [phone] Evaluation + Plan note* Assessment & Plan Note - CHERY Aguilera - 09/24/2023 3:58 PM EDTAssociated Problem(s): Primary osteoarthritis of both knees We reviewed conservative measures for knee OA symptom control. Patient to continue to take Tylenol per package directions, diclofenac gel up to 4 times daily. Recommended OA reaction brace with medial offloading for wt bearing activities Home exercises for knee aconditioning (AAOS) were reviewed and patient encouraged to begin in approximately 1 week and advance as tolerated. Plan will be to follow-up here in approximately 1 month, sooner for changes or concerns. Discussed multiple conservative measures for knee OA treatment [facility] Work Phone: 1([phone]) 453-489008-16-2024 Miscellaneous Notes* Assessment & Plan Note - CHERY Aguilera - 09/24/2023 3:58 PM EDTAssociated Problem(s): Primary osteoarthritis of both knees We reviewed conservative measures for knee OA symptom control. Patient to continue to take Tylenol per package directions, diclofenac gel up to 4 times daily. Recommended OA reaction brace with medial offloading for wt bearing activities Home exercises for knee aconditioning (AAOS) were reviewed and patient encouraged to begin in approximately 1 week and advance as tolerated. Plan will be to follow-up here in approximately 1 month, sooner for changes or concerns. Discussed multiple conservative measures for knee OA treatment documented in this [facility] Work Phone: [phone]) 899-919908-16-2024 History of Present illness Narrative* CHERY Aguilera - 09/24/2023 2:45 PM EDTAssociated Order(s): L Inj/Asp: bilateral knee Subjective Patient ID: Nikki Montes is a 48 y.o. female. Chief Complaint: No chief complaint on file. Last Surgery: No surgery found Last Surgery Date: No surgery found HPI Nikki is a pleasant 48 yo presenting as NPV for Bilat knee sx [id number] yrs No prior inj or surgery No recent injury or identified Ibuprofen helps a little No braces or wraps Wil inj x 2 in past with no response (approx 10+ yrs ago) + crepitus Agg with steps (up worse), squatting, some difficulty with shoes and socks Review of Systems Constitutional: Negative. HENT: Negative. Respiratory: Negative. Cardiovascular: Negative. Endocrine: Negative. Musculoskeletal: Positive for arthralgias. Skin: Negative. Neurological: Negative. Hematological: Negative. Psychiatric/Behavioral: Negative. Objective Right Knee Exam Tenderness The patient is experiencing tenderness in the medial joint line. Range of Motion Extension: 0 Flexion: 120 Tests Mohinder: Medial - positive Lateral - negative Varus: negative Valgus: negative Drawer: Anterior - negative Posterior - negative Other Erythema: absent Sensation: normal Pulse: present Swelling: mild Comments: Mild medial swelling, + lat joint pain, moderate tenderness over distal IT band Full ROM distal joints with mild crepitus, distal neurovacular intact with cap refill at 2 seconds Left Knee Exam Tenderness The patient is experiencing tenderness in the lateral joint line. Range of Motion Extension: 0 Flexion: 130 Tests Mohinder: Medial - negative Lateral - positive Varus: negative Valgus: negative Drawer: Anterior - negative Posterior - negative Other Erythema: absent Sensation: normal Pulse: present Swelling: mild Comments: Mild lat swelling, + lat joint pain, moderate tenderness over distal IT band Full ROM distal joints with mild crepitus, distal neurovacular intact with cap refill at 2 seconds Image Results: Patient ID: Nikki Montes is a 48 y.o. female. L Inj/Asp: bilateral knee on 09/24/2023 3:50 PM Indications: pain and joint swelling Details: 22 G needle, superolateral approach Medications (Right): 40 mg triamcinolone acetonide 40 mg/mL Medications (Left): 40 mg triamcinolone acetonide 40 mg/mL Outcome: tolerated well, no immediate complications We discussed risk and benefits of cortisone injection, patient wishes to proceed via verbal consent. Skin was prepped with Betadine, vapo coolant spray and alcohol. Administered injection of 40 mg Kenalog, 3 cc 2% lidocaine and 3 cc of 0.25% bupivacaine. Patient tolerated injection well with lidocaine suppression. No active bleeding, bandage applied to site. Procedure, treatment alternatives, risks and benefits explained, specific risks discussed. Consent was given by the patient. Immediately prior to procedure a time out was called to verify the correctpatient, procedure, equipment, senior administrative support and site/side marked as required. Patient was prepped and draped in the usual sterile fashion. Assessment/Plan Encounter Diagnoses: Problem List Items Addressed This Visit ICD-10-CM Primary osteoarthritis of both knees - Primary M17.0 We reviewed conservative measures for knee OA symptom control. Patient to continue to take Tylenol per package directions, diclofenac gel up to 4 times daily. Recommended OA reaction brace with medial offloading for wt bearing activities Home exercises for knee aconditioning (AAOS) were reviewed and patient encouraged to begin in approximately 1 week and advance as tolerated. Plan will be to follow-up here in approximately 1 month, sooner for changes or concerns. Discussed multiple conservative measures for knee OA treatment Relevant Medications meloxicam (Mobic) 15 mg tablet Other Relevant Orders Follow Up In Orthopaedic Surgery Follow Up In Orthopaedic Surgery Other Visit Diagnoses Codes Pain in both knees, unspecified chronicity M25.561, M25.562 Relevant Orders XR knee 4+ views bilateral documented in this encounterUniversity [facility] Work Phone: [phone]) 479-277612-27-2023 NoteHNO ID: [id number] Author: Yeni Reinoso MD Service: ? Author Type: Physician Type: Progress Notes Filed: 02/03/2023 11:52 AM Note Text: February 03, 2023 HPI: Nikki Montes is a 47 yo female with left 5th toe fx Pain Descriptors: Duration: acute Severity: moderate Quality: ache Location: foot, ankle Context: worse with activity and dependent position Modifying Factors: improved with rest and elevation Supporting Subjective Information Below: Estimated body mass index is 38.27 kg/m? as calculated from the following: Height as of this encounter: 165.1 cm (5' 5). Weight as of this encounter: 104.3 kg (230 lb). Past Medical History PAST MEDICAL HISTORY Diagnosis Date Congenital musculoskeletal deformity of spine Genital herpes, unspecified Insertion of IUD November 30, 2007, 10/31/2012 Mirena Surgical History: PAST SURGICAL HISTORY Procedure Laterality Date ADENOIDECTOMY PRIMARY Adenoidectomy IUD INSERTION ([facility] [facility])_*[place] November 30, 2007, 10/31/2012 Mirena LAPS SURG CHOLECYSTECTOMY W/CHOLANGIOGRAPHY 09/30/06 MYRINGOTOMY ASPIRAND/EUSTACHIAN TUBE NFLTJ ANES Myringotomy/tubes Family History: FAMILY HISTORY Problem Relation Age of Onset Hypertension Father Lipids Father Colon Cancer Maternal Grandmother Thyroid Paternal Grandmother Cancer Paternal Grandfather BRAIN TUMOR Cancer Other ggm- Leukemia Cancer Other BRAIN TUMOR/PGUNCLE Heart Paternal Uncle [place] Seizures Maternal Aunt Medications: Current Outpatient Medications Medication Sig levonorgestrel (MIRENA) 20 mcg/24 hour (5 years) IUD 1 Each by INTRAUTERINE route continuous. acetaminophen (TYLENOL 8 HOUR ORAL) Take by mouth. (Patient not taking: Reported on 02/03/2023) fluticasone (FLONASE) 50 mcg/actuation nasal spray Use 2 Sprays in each nostril once daily. Rinse mouth after use. (Patient not taking: Reported on 02/03/2023) valACYclovir (VALTREX) 1 gram tab Take 1 tablet by mouth once daily. (Patient not taking: Reported on 02/03/2023) omeprazole (PRILOSEC) 20 mg capsule Take 1 capsule by mouth daily before breakfast. 1/2 hr before meal. (Patient not taking: Reported on 02/03/2023) predniSONE (DELTASONE) 20 mg tablet Take 1 tablet by mouth once daily. (Patient not taking: Reported on 02/03/2023) No current facility-administered medications for this visit. Allergies: Penicillins, Cephalexin, and Amoxicillin Review Of Systems GENERAL:Negative for malaise, significant weight loss and fever HEENT:Negative for frequent or significant headaches, significant changes in vision or vision problems, significant ear problems or hearing loss, nasal discharge or nose bleeds and sore throat, difficulty swallowing, mouth lesions NECK:Negative for lumps, goiter, pain and significant neck swelling RESPIRATORY: Negative for cough, wheezing and shortness of breath CARDIOVASCULAR: Negative for chest pain, leg swelling and palpitations GASTROINTESTINAL: Negative for abdominal discomfort, blood in stools or black stools and change in bowel habits GENITOURINARY: Negative for dysuria, frequency and incontinence MUSCULOSKELETAL: Negative for joint pain or swelling, back pain, and muscle pain. NEUROLOGIC:Negative for focal numbness or weakness, headaches and dizziness. SKIN:Negative for lesions, rash, and itching. PSYCHIATRIC: Negative for sleep disturbance, mood disorder and recent psychosocial stressors. HEMATOLOGIC/LYMPHATIC/IMMUNOLOGIC:Negative for prolonged bleeding, bruising easily, and swollen nodes. ENDOCRINE: Negative for cold or heat intolerance, polyuria, polydipsia and goiter. Physical Exam: Basic physical examination reveals the patient to be in no acute distress. The patient is alert and oriented x 3 Mood and affect are appropriate. Head is atraumatic, normocephalic. Neck ROM grossly intact. Mucous membranes are moist. Eyes, ears, and nose are normal in appearance. Hearing is grossly intact. Breathing is unlabored with grossly normal chest motion. Limited Upper Extremity Exam: Shoulders with grossly intact ROM and strength, no obvious deformity. Elbows with grossly intact ROM and strength, no obvious deformity. Hand and wrist with grossly intact ROM and strength, no obvious deformity. Focused orthopaedic examination reveals the following: Skin intact without lesions. No deformity Mild swelling Imaging: XR with very subtle nondisplaced P1 fx 5th toe Assessment and Plan: Left 5th toe fx Will tx nonop with postop shoe Return to clinic: prn X-Ray's at next visit: Yes PCP: Ap Smalls MD [address] [place] [id number] FELLOW / RESIDENT: No fellow or resident assisted in this office visit. Yeni Reinoso, [facility]12-27-2023 NoteHNO ID: [id number] Author: Sari Archibald Tech Service: ? Author Type: Lockstitch Collar Setter Type: Progress Notes Filed: 02/03/2023 10:59 AM Note Text: Radiology Service Progress Note PATIENT NAME: Nikki Montes DATE OF SERVICE: February 03, 2023 TIME: 10:59 AM PATIENT IDENTITY VERIFICATION COMPLETED USING TWO (2) IDENTIFIERS: Name and Date of confirmed by patient verbally. FALL SCREENING: Has the patient had 2 falls in the last year or 1 fall with injury or currently using an Ambulatory Assistive Device (Walker, Cane, Wheelchair, Crutches, etc.)? No PATIENT GENDER DATA: Female. status: : No status: NO. PATIENT RELEVANT IMPLANT DATA REVIEWED: Not Applicable RADIOLOGY DEPARTMENT: General X-ray: Exam(s) Completed: Lower Extremity X-Ray(s): Ankle, Left and Wt. Bearing and Foot, Left and Wt. Bearing PERIPHERAL IV DATA: Not applicable SIGNED BY: Rupa Medina February 03, 2023 10:59 [facility] Diagnosis Primary osteoarthritis of both knees- Primary Pain in both knees, unspecified chronicity Primary osteoarthritis of both knees- Primary Primary osteoarthritis of both knees- Primary documented in this encounter [facility] Work Phone: Evaluation note* Diagnosis Primary osteoarthritis of both knees- Primary Pain in both knees, unspecified chronicity Pain in both knees, unspecified chronicity documented in this encounter [facility] Work Phone: Evaluation note* Diagnosis Primary osteoarthritis of both knees- Primary Pain in both knees, unspecified chronicity documented in this encounter [facility] Work Phone: Evaluation note* Diagnosis Primary osteoarthritis of both knees- Primary Pain in both knees, unspecified chronicity Primary osteoarthritis of both knees- Primary documented in this encounter [facility] Work Phone: Evaluation note* Diagnosis Primary osteoarthritis of both knees- Primary Pain in both knees, unspecified chronicity Primary osteoarthritis of both knees- Primary Primary osteoarthritis of both knees- Primary Primary osteoarthritis of both knees- Primary documented in this encounter [facility] Work Phone: Evaluation note* Diagnosis Primary osteoarthritis of both knees- Primary Pain in both knees, unspecified chronicity Primary osteoarthritis of both knees- Primary Primary osteoarthritis of both knees- Primary Primary osteoarthritis of both knees- Primary Well woman exam with routine gynecological exam- Primary Routine gynecological examination Breast cancer screening by mammogram Screening for cervical cancer Screening for malignant neoplasm of the cervix Vaginal yeast infection Candidiasis of vulva and vagina documented in this encounter [facility] Work Phone: Evaluation noteNo assessment information available [facility] Work Phone: History of Present illness [id number] presents for annual exam. Patient safe at home denies abuse. Patient sexually active without concern. IUD doing well with minimal spotting. Patient has some chronic back and knee problemsand working on increasing activity with the weather changing. [facility] Work Phone: Reason for referral (narrative)* Consultation (Routine) - Authorized Specialty Diagnoses / Procedures Referred By Abdifatah mcfadden Referred To Contact Orthopaedic Surgery / Orthopedic Surgery Diagnoses Primary osteoarthritis of both knees Procedures Follow Up In Orthopaedic Surgery Aliyah Mccartney APRN-LISA [address] [facility] [place] [address] Referral ID Status Reason Start Date Expiration Date V isits Requested Visits Authorized [id number] Authorized 09/24/2023 09/23/2024 1 1 * Consultation (Routine) - Authorized Specialty Diagnoses / Procedures Referred By Contac t Referred To Contact Orthopaedic Surgery / Orthopedic Surgery Diagnoses Primary osteoarthritis of both knees Procedures Follow Up In Orthopaedic Surgery Aliyah Mccartney APRN-CNP [address] [facility], [address] [address] Referral ID Status Reason Start Date Expiration Date V isits Requested Visits Authorized [id number] Authorized 09/24/2023 09/23/2024 1 1 * Imaging (Routine) - Authorized Specialty Diagnoses / Procedures Referred By Contac t Referred To Contact Radiology Diagnoses Pain in both knees, unspecified chronicity Procedures XR knee 4+ views bilateral XR knee 4+ views bilateral Aliyah Mccartney APRN-CNP [address] [facility], [address] [address] [facility] [address] [place] [address] Referral ID Status Reason Start Date Expiration Date Visits Requested Visits Authorized [id number] Authorized Perform Procedure 09/22/2023 09/21/2024 1 1 [facility] Work Phone: Reason for referral (narrative)* Consultation (Routine) - Authorized Specialty Diagnoses / Procedures Referred By Contac t Referred To Contact Orthopaedic Surgery / Orthopedic Surgery Diagnoses Primary osteoarthritis of both knees Procedures Follow Up In Orthopaedic Surgery Aliyah Mccartney APRN-CNP [address] [facility], [address] [address] Referral ID Status Reason Start Date Expiration Date V isits Requested Visits Authorized [id number] Authorized 10/29/2023 10/28/2024 1 1 [facility] Work Phone: Resuah for referral (narrative)No reason for referral information availableZ[facility] Work Phone: Summary Purpose Family History No Family History Records FoundUnknown Family Member Name Dates Details Anxiety: Mother Status:Active Family history of hypertensi on: Father(V17.49, Z82.49) Status:Active Unknown Family Member Name Dates Details Anxiety: Mother Status:Active Family history of hypertensi on: Father(V17.49, Z82.49) Status:Active Advance Directives No Advanced Directives Records FoundNo Advanced Directives Records FoundNo Advanced Directives Records FoundNo Advanced Directives Records FoundNo Advanced Directives Records FoundNo Advanced Directives Records FoundNo Advanced Directives Records FoundNo Advanced Directives Records FoundNo Advanced Directives Records FoundNo Advanced Directives Records Found Chief Complaint PT IS HERE TODAY FOR HER ANNUAL EXAM. LAST PAP WAS 08/08/2018, COTEST NEG. HAS NO CONCERNS. DOES NOT DO A SELF BREAST CHECK. NEEDS A MAMMOGRAM ODER. LMP: IUD Reason for Referral Specialty Diagnoses / Procedures Referred By Abdifatah mcfadden Referred To Contact Radiology Diagnoses Pain in both knees, unspecified chronicity Procedures XR knee 4+ views bilateral XR knee 4+ views bilateral Aliyah Mccartney, PHOTOGRAMMETRIST-CRM CONSULTANT [address] [facility], [facility] [address] [place] [address] [facility] [address] [place] [address] Referral ID Status Reason Start Date Expiration Date Visits Requested Visits Authorized [id number] Authorized Perform Procedure 09/22/2023 09/21/2024 1 1 Chief Complaint and Reason for Visit Chief Complaint Admit Date BILATERAL KNEES April 20, 2024 3:1 4pm BL KNEES July 21, 2024 3:05 pm Chief Complaint Admit Date BL KNEES July 21, 2024 3:05 pm BL KNEES October 23, 2024 8:55am Reason for Visit Admit Date Bilateral primary osteoarthritis of knee July 21, 2024 3:05pm Additional Source Comments INFORMATION SOURCE (unrecogn ized section and content) DATE CREATED AUTHOR 07/29/2017 [facility] DATE CREATED AUTHOR AUTHOR'S ORGANIZ ATION 10/09/2017 [facility] DATE CREATED AUTHOR AUTHOR'S ORGANIZ ATION 09/26/2018 [facility] DATE CREATED AUTHOR AUTHOR'S ORGANIZ ATION 04/20/2021 [employer] DATE CREATED AUTHOR AUTHOR'S ORGANIZ ATION 04/16/2022 [facility] DATE CREATED AUTHOR AUTHOR'S ORGANIZ ATION 02/04/2023 [facility] DATE CREATED AUTHOR AUTHOR'S ORGANIZ ATION 02/07/2023 [facility] DATE CREATED AUTHOR AUTHOR'S ORGANIZ ATION 03/01/2024 [facility] DATE CREATED AUTHOR AUTHOR'S ORGANIZ ATION 06/17/2024 [facility] DATE CREATED AUTHOR AUTHOR'S ORGANIZ ATION 10/24/2024 [facility] <item><item><item> Privacy Markings (unrecogniz ed section and content) Section Author: [place] Mo[employer] PROHIBITION ON REDISCLOSURE OF CONFIDENTIAL INFORMATION This notice accompanies a disclosure of information concerning a client made to you with the consent of such client. Section Author: [place] Mojica PROHIBITION ON REDISCLOSURE OF CONFIDENTIAL INFORMATION This notice accompanies a disclosure of information concerning a client made to you with the consent of such client. Section Author: [place] Mojica PROHIBITION ON REDISCLOSURE OF CONFIDENTIAL INFORMATION This notice accompanies a disclosure of information concerning a client made to you with the consent of such client. Reason for Visit (unrecogniz ed section and content) Reason Comments Follow-up Pain Follow-up Left one hurts more Pain Left one hurts more Specialty Diagnoses / Procedures Referred By Abdifatah t Referred To Contact Radiology Diagnoses Pain in both knees, unspecified chronicity Procedures XR knee 4+ views bilateral XR knee 4+ views bilateral Aliyah Mccartney, PHOTOGRAMMETRIST-CRM CONSULTANT [address] [facility], [address] [place] [address] [facility] [address] [place] [address] Referral ID Status Reason Start Date Expiration Date Visits Requested Visits Authorized [id number] Authorized Perform Procedure 09/22/2023 09/21/2024 1 1 Reason Comments Pain Patient had been [facility] with [facility] for several years. She had gotten cortisone injections about 10-12 years ago and they were ineffective. Since August of this year, she feels a like the back of her left knee is going to pop Edema Patient had been [facility] with knee pain for several years. She had gotten cortisone injections about 10-12 years ago and they were ineffective. Since August of this year, she feels a like the back of her left knee is going to pop Pain Patient had been [facility] with knee pain for several years. She had gotten cortisone injections about 10-12 years ago and they were ineffective. She sates that sometimes she feels a POP then a warm sensation that travels down her leg from her right knee to her foot. Edema Patient had been [facility] with knee pain for several years. She had gotten cortisone injections about 10-12 years ago and they were ineffective. She sates that sometimes she feels a POP then a warm sensation that travels down her leg from her right knee to her foot. 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 Bag Punch Operator Relationship Specialty Start Date End Date Ap Smalls MD [address] [address] PCP - General 01/31/19 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 Bag Punch Operator Relationship Specialty Start Date End Date Ap Smalls MD [address] [address] PCP - General 01/31/19 Team Status: Active Member Role Status Dates [facility] Doctor Family Provider Active Team Status: Inactive Member Role Status Dates PHILIPPE Rockwell Attending Provider Active Start: April 20, 2024 End: April 20, 2024 Team Status: Inactive Member Role Status Dates PHILIPPE Rockwell Attending Provider Active Start: July 21, 2024 End: July 21, 2024 Team Status: Active Member Role/Relationship Status Dates [facility] Doctor Family Provider Active Team Status: Inactive Member Role/Relationship Status Dates PHILIPPE Rockwell Attending Provider Active Start: July 21, 2024 End: July 21, 2024 Team Status: Inactive Member Role/Relationship Status Dates PHILIPPE Rockwell Attending Provider Active Start: October 23, 2024 End: October 23, 2024 Goals (unrecognized section and content) Goals may be documented in a n alternate sectionGoals may be documented in an alternate section FOR RECORDS PERTAINING TO PATIENTS WHO ARE OR HAVE BEEN ENROLLED IN A CHEMICAL DEPENDENCY/SUBSTANCEABUSE PROGRAM, SOME INFORMATION MAY BE OMITTED. This clinical summary was aggregated from multiple sources. Caution should be exercised in using it in the provision of clinical care. This summary normalizes information from multiple sources, and as a consequence, information in this document may materially change the coding, format and clinical context of patient data. In addition, data may be omitted in some cases. CLINICAL DECISIONS SHOULD BE BASED ON THE PRIMARY CLINICAL RECORDS. [employer] provides no warranty or guarantee of the accuracy or completeness of information in this document.
--- NOTE | 2025-01-27 08:13 | MRI_ITS ---
PROCEDURE: LOWER EXT JOINT ONLY (ROUTINE) 01/27/2025 REASON FOR EXAM: WORSENING BILAT KNEE PAIN TECHNIQUE: MRI of the right lower Extremity. Multiplanar and multisequence images were obtained without IV contrast administration. COMPARISON: COMPARISON : None. FINDINGS: Bone Marrow: No marrow edema. Marginal patellar, femoral, and tibial osteophytes with partial-thickness cartilaginous thinning of the patellofemoral articular cartilage as well as fissuring of the femoral trochlear cartilage. Effusion: Tiny joint effusion. Soft Tissues: No popliteal cyst. Ligaments and Tendons: The cruciate and collateral ligaments are intact. Extensor mechanism is within normal limits. MRI/Lower Ext Joint Only (Routine) IMPRESSION: 1. 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 2. The cruciate and collateral ligaments are intact. No meniscal tear. Reading Location: [id number]
--- NOTE | 2025-01-27 08:13 | MRI_ITS ---
PROCEDURE: LOWER EXT JOINT ONLY (ROUTINE) 01/27/2025 REASON FOR EXAM: WORSENING BILAT KNEE PAIN TECHNIQUE: MRI of the left lower Extremity. Multiplanar and multisequence images were obtained without IV contrast administration. COMPARISON: COMPARISON : None available. FINDINGS: Bone Marrow: Small focus of subchondral marrow edema at the tibial spine on the left medially. Effusion: No significant joint effusion. Soft Tissues: No popliteal cyst. Mild edema within the tibialis posterior muscle. No meniscal tear. Ligaments and Tendons: The extensor mechanism is intact. No cruciate or collateral ligament abnormality. Tiny marginal patellar, femoral, and tibial osteophytes with partial-thickness cartilaginous thinning. MRI/Lower Ext Joint Only (Routine) IMPRESSION: 1. Mild tibialis posterior muscle edema suggesting strain/sprain. 2. Mild tricompartmental osteoarthritic degenerative changes of the left knee. 3. The cruciate and collateral ligaments are intact. No meniscal tear. Reading Location: [id number]
== END | disposition home or self-care (01) ==
PROVIDERS: Referring Provider Nurse Practitioner Family; Visit Provider Nurse Practitioner Family
DX: M23.90 Unspecified internal derangement of unspecified knee (principal); M17.0 Bilateral primary osteoarthritis of knee
CPT/HCPCS: 73721